=== PATIENT | female | born 1950 | race Caucasian/White ===

== ENCOUNTER → 2016-06-04 07:23 | Outpatient (CLI) | payer MEDICARE ==
[2015-02-01 07:10] VITALS: BMI 19.2
[~2016-06-04 07:23] MED LIST: ANASTROZOLE1 MG PO; ATIVAN0.5 MG PO; BUPROBAN150 MG PO; COUMADIN5 MG OR; DEPAKOTE500 MG PO; DESERYL100 MG PO; DIFLUCAN200 MG OR; EFFEXOR75 MG PO; FLAGYL500 MG OR; LASIX40 MG OR; LEXAPRO10 MG PO; MEGACE400 MG/10 OR; MICRO-K10 MEQ OR; NORCO 5/325 TAB1 TA1 OR; PRILOSEC20 MG PO; PROPRANOLOL HCL60 MG PO; PROTEIN LIQUID30 ML OR; RISPERDAL1 MG PO; RYTHMOL225 MG PO; ZOFRAN4 MG OR; ZYPREXA10 MG PO; ZYPREXA20 MG OR; ZYPREXA5 MG OR
== END | disposition home or self-care (01) ==
LOC: D.CT 07:23
DX: N95.0 Postmenopausal bleeding (principal)

== ENCOUNTER 2016-10-09 09:37 | Inpatient (IN) | payer MEDICARE ==
[~2016-10-09] VITALS: Ht 172.7 cm; Wt 47.3 kg
--- NOTE | ~2016-10-09 | EC ---
PATIENT:MAGGI GARAY DATE OF SERVICE: 10/10/16 SEX: F MEDICAL RECORD: [id number] DATE OF : [birth year] LOCATION:D.M2 D.212 AGE OF PATIENT: 66 ADMISSION DATE: 10/10/16 REFERRING PHYSICIAN: INTERPRETING PHYSICIAN: VALERIE CAPONE MD ECHOCARDIOGRAM REPORT ECHO CHARGES 4 ECHO COMPLETE CLINICAL DIAGNOSIS: ACS/COPD/WEAKNESS/ELEVATED TROPONIN ECHOCARDIOGRAPHIC MEASUREMENTS (adult normal given) AC root (d.<3.7cm) 3.6 LV Septum d (<1.2 cm> 1.5 Valve Excursion 2.1 LV Septum (systole) 1.8 Left Atria (s.<4.0cm> 3.2 LVPW d(<1.2cm) 1.5 RV (d.<2.3cm) 2.6 LVPW (sytole) 1.7 LV diastole(<5.6CM) 3.6 MV E-F(>70mm/sec) LV systole 2.3 LVOT Diameter 1.9 MV exc.(>10mm) 1.4 Est.ejection fraction (50-75%) Pericardial Effusion N DOPPLER: LVIT A 81.0 E 93.0 LA RVSP 22 LVOT 157 AOP1/2T Asc. Ao 174 RVOT 87 RA PA 121 AV Gradient Peak 12.13 AV Mean 6.42 AV Area 2.5 MV Gradient Peak 5.28 MV Mean 1.69 MV Area COMMENTS: Cube Machine Tender: Martha ALMODOVAR Trouble Clerk:Alma Mercedes TAPE# PACS DATE OF SERVICE: 10/11/2016 Adequate 2D echo, color flow, spectral Doppler, and M-mode. Mild LVH. LV internal dimension is normal. Wall motion is normal. EF is greater 55%. Aortic valve is tricuspid. No evidence of stenosis by Doppler interrogation. The left atrium is normal at 3.2 cm. Mitral valve shows no prolapse. Trace MR. Right-sided chamber is grossly normal. Mild TR by color flow imaging. TRANSINT:[id number] Voice Confirmation ID: [id number] DOCUMENT ID: [id number] ECHOCARDIOGRAM REPORT [id number] MAGGI GARAY VALERIE CAPONE MD CC: [id number] DICTATION DATE: 10/11/16 1026 ERP MANAGER: 10/11/16 1705 ADM IN [address] [place] [address]
[2016-10-09 11:15] LABS: APPEARANCE CLEAR (CLEAR); COLOR YELLOW (YELLOW)
[2016-10-09 11:17] LABS: BILIRUBIN NEGATIVE (NEGATIVE); GLUCOSE NEGATIVE (NEGATIVE); KETONE NEGATIVE (NEGATIVE); LEUKOCYTE ESTERASE NEGATIVE (NEGATIVE); NITRITE NEGATIVE (NEGATIVE); PROTEIN NEGATIVE (NEGATIVE); UROBILINOGEN NORMAL (NORMAL)
[2016-10-09 11:21] LABS: UDS - AMPHET NEGATIVE QUAL (NEGATIVE); UDS - BARB NEGATIVE QUAL (NEGATIVE); UDS - BENZO NEGATIVE QUAL (NEGATIVE); UDS - COCAINE NEGATIVE QUAL (NEGATIVE); UDS - METH NEGATIVE QUAL (NEGATIVE); UDS - OPIATE NEGATIVE QUAL (NEGATIVE); UDS - PCP NEGATIVE QUAL (NEGATIVE); UDS - THC NEGATIVE QUAL (NEGATIVE)
[2016-10-09 11:27] LABS: BASOPHILS 0.1 % (0-2); EOSINOPHILS 0.1 % (0-7); HEMATOCRIT 50.2 % (36.0-48.0); IMMATURE GRANULOCYTES 0.1 % (0-5); LYMPHOCYTES 13.2 % (15-50); MCH 32.9 pg (26.0-34.0); MCHC 33.9 g/dL (31.0-37.0); MCV 97.3 fL (80.0-100.0); MONOCYTES 11.8 % (2-11); NEUTROPHILS 74.7 % (40-80); PLATELET COUNT 200 10x3/uL (130-400); RBC 5.16 10x6/uL (4.00-5.40); RDW 14.7 % (11.5-14.5); WBC 6.9 10x3/uL (4.8-10.8)
[2016-10-09 11:41] LABS: ALBUMIN 3.2 g/dL (3.4-5.0); ALKALINE PHOSPHATASE 103 U/L (46-116); ALT (SGPT) 14 U/L (10-68); CALC OSMOLALITY 274 mosm/kg (275-300); CARBON DIOXIDE 32.6 mmol/L (21.0-32.0); CHLORIDE - SERUM 100 mmol/L (98-107); CREATININE - SERUM 0.7 mg/dL (0.6-1.3); GLUCOSE 109 mg/dL (74-106); POTASSIUM - SERUM 3.9 mmol/L (3.5-5.1); PROTEIN - SERUM 6.9 g/dL (6.4-8.2); SODIUM 139 mmol/L (136-145); UREA NITROGEN 2 mg/dL (7-18); eGFR NON AFRICAN AMERICAN 89 mL/min (90-120)
[2016-10-09 11:58] LABS: CREATINE KINASE 36 UL (21-215)
[2016-10-09 12:21] LABS: TROPONIN-I 0.142 ng/mL (0.000-0.060)
--- NOTE | 2016-10-09 15:46 | NUR ---
TRANSFERED FROM ER BY W/Mynor CURIEL TO ROOM. CALL LIGHT IN REACH. WILL CONT. PLAN OF CARE.
[2016-10-09] MEDS ORDERED: PEPCID20 MG PO (15:58)
[2016-10-09] MEDS ORDERED: TOPROL XL25 MG PO (15:58)
[2016-10-09] MEDS ORDERED: CARAFATE1 G PO (16:02)
[2016-10-09 16:12] VITALS: BP 121/81; BMI 15.5
[2016-10-09 19:00] VITALS: BP 173/68
[2016-10-10 04:00] VITALS: BP 79/48
[2016-10-10 05:45] LABS: BASOPHILS 0 % (0-2); EOSINOPHILS 0 % (0-7); HEMATOCRIT 45.4 % (36.0-48.0); IMMATURE GRANULOCYTES 0.3 % (0-5); LYMPHOCYTES 12.7 % (15-50); MCV 96.8 fL (80.0-100.0); MEAN PLATELET VOLUME 11.9 fL (7.4-10.4); MONOCYTES 4.7 % (2-11); NEUTROPHILS 82.3 % (40-80); PLATELET COUNT 196 10x3/uL (130-400); RBC 4.69 10x6/uL (4.00-5.40)
[2016-10-10 05:47] LABS: WBC 3.9 10x3/uL (4.8-10.8)
[2016-10-10 06:15] LABS: ALBUMIN 2.7 g/dL (3.4-5.0); ALKALINE PHOSPHATASE 89 U/L (46-116); ALT (SGPT) 10 U/L (10-68); BILIRUBIN - TOTAL 0.24 mg/dL (0.2-1.3); CALC OSMOLALITY 273 mosm/kg (275-300); CALCIUM 9.2 mg/dL (8.5-10.1); CARBON DIOXIDE 28.9 mmol/L (21.0-32.0); CHLORIDE - SERUM 99 mmol/L (98-107); CREATININE - SERUM 0.8 mg/dL (0.6-1.3); GLUCOSE 142 mg/dL (74-106); POTASSIUM - SERUM 3.9 mmol/L (3.5-5.1); PROTEIN - SERUM 6.2 g/dL (6.4-8.2); SODIUM 137 mmol/L (136-145); UREA NITROGEN 8 mg/dL (7-18); eGFR NON AFRICAN AMERICAN 76 mL/min (90-120)
[2016-10-10 08:37] VITALS: BP 90/53
[2016-10-10 11:33] VITALS: Ht 172.7 cm; Wt 47.3 kg
[2016-10-10 13:03] VITALS: BP 104/56
--- NOTE | 2016-10-10 13:25 | NUR ---
TELEMETRY SR. RESP UL ON 02 2L NC. UD CONT. PER RT. CALL LIGHT IN REACH. WILL MONITOR NEEDS.
[2016-10-10 16:03] VITALS: BP 96/58
[2016-10-10 20:00] VITALS: BP 93/57
--- NOTE | 2016-10-10 20:00 | NUR ---
PT RESTING IN BED. SR PER TELEMETRY. O2 @ 2L/NC. SALINE LOCK TO LFA. NPO AFTER MIDNIGHT FOR CTA OF CHEST IN AM
--- NOTE | 2016-10-10 23:00 | NUR ---
HS MEDS GIVEN. PT RESTING. VOICING NO NEEDS. IV ABT COMPLETED. CPOC.
[2016-10-11] VITALS: BP 80/51
[2016-10-11 04:00] VITALS: BP 100/61; BP 80/51
--- NOTE | 2016-10-11 04:20 | NUR ---
RESTING IN BED WITH NO DISTRESS. CPOC.
[2016-10-11 08:00] VITALS: BP 85/49
--- NOTE | 2016-10-11 08:35 | CN ---
PATIENT NAME:MAGGI GARAY MEDICAL RECORD: [id number] : [birth year] LOCATION:DJacinda D.2122 ADMIT DATE: 10/10/16 ACCOUNT: [id number] CONSULTING PHYSICIAN: VALERIE CAPONE MD REFERRING PHYSICIAN: SERENA VACA MD DATE OF CONSULTATION: 10/10/2016 HISTORY OF PRESENT ILLNESS: A 66-year-old lady with known history of coronary artery disease, status post arteriography via Dr. Youssef approximately 1 year ago, presented with COPD exacerbation, cough, wheezing, marked malaise, fatigue, is feeling much better now. Initially, elevated troponin, this is washing out quickly consistent with a strain pattern. ECG without acute change. We are asked to see her concerning her cardiovascular status. PAST MEDICAL HISTORY: Includes: 1. History of obstructive pulmonary disease. 2. Paroxysmal atrial fibrillation. 3. Hypertension. 4. Gastroesophageal reflux disease. ALLERGIES: NICOTINE PATCHES. MEDICATIONS: Typically include Prilosec 20 mg p.o. q. day, Carafate ____ a.c. and q.h.s., Risperdal 1 mg q.h.s., trazodone 100 q.h.s., Depakote ____ at bedtime, metoprolol 25 q. day, propafenone ____ b.i.d., and Arimidex 1 mg daily. SOCIAL HISTORY: Lives here in [place]. She is able to take care of her ADLs.. No set exercise program. Still smokes about a pack a day. REVIEW OF SYSTEMS: The patient reports easy bruising but reports no swollen glands. The patient reports no fever, no night sweats, no significant weight gain, no significant weight loss. No significant exercise tolerance. The patient reports no dry eyes, no irritation, no vision change. Patient reports no difficulty hearing and no ear pain. Patient reports no frequent nose bleeds or nose and sinus problems. Patient reports on arm pain on exertion. No shortness of breath while lying down. No history of heart murmur. Patient reports no cough, no wheezing or coughing up blood. Patient reports no abdominal pain, no vomiting. Normal appetite. No diarrhea and not vomiting blood. No nausea and no constipation. Patient reports no incontinence. No difficulty urinating. No hematuria. No increased frequency. Patient reports no muscle aches. No weakness, no arthralgias, no back pain. No swelling of the extremities. Patient reports no abnormal mole, no jaundice, no rashes. Reports no loss of consciousness. No weakness and no numbness. No seizures, dizziness, or headaches. The patient reports no depression, no sleep disturbance, feeling safe in a relationship and no alcohol abuse. Patient reports on fatigue. Reports no runny nose or sinus pressure. No itching, no hives, and no frequent sneezing.. PHYSICAL EXAMINATION: GENERAL: Pleasant female, alert and oriented, and cooperative. VITAL SIGNS: Blood pressure 90/53, pulse 94 and regular. HEENT: Normocephalic, atraumatic. NECK: No bruits are noted. HEART: Regular, II/ systolic ejection murmur. LUNGS: Actually fairly good air excursion, few expiratory wheezes. CONSULT REPORT [id number] GARAYMAGGI Angie ABDOMEN: Soft, nontender. EXTREMITIES: Pulses 2+ with no edema. NEUROLOGICAL: Grossly intact. DIAGNOSTIC DATA: ECG shows left anterior fascicular block, normal sinus rhythm. IMPRESSION: Enzymes most consistent with a strain pattern with early rods, quick washout, particularly in light of previous normal catheterization approximately a year ago. Remains in sinus rhythm at this point, improving from a pulmonary standpoint. No contraindication. Discharge in the a.m. if remains stable. TRANSINT:[id number] Voice Confirmation ID: [id number] DOCUMENT ID: [id number] VALERIE CAPONE MD at 0835 CC: [id number] DICTATION DATE: 10/10/16 1017 SANDER AND POLISHER: 10/10/16 1816 ADM IN [place] [id number] [place] [id number]
--- NOTE | 2016-10-11 12:21 | NUR ---
OUT OF ROOM FOR CT CHEST.
[2016-10-11 19:00] VITALS: BP 89/47
--- NOTE | 2016-10-11 19:56 | NUR ---
PT RESTING INBED WITH NO DISTRESS. IV ABT COMPLETED SO IVF SALINE LOCKED FROM IV IN LFA. O2 @ 2L/NC, MILD SHORTNESS OF BREATH AND CONGESTED COUGH. STATES SHE IS NOT COUGHING ANYTHING UP. ENCOURAGED HER TO DRINK WATER AND USE THE FLUTTER VALVE AND INCENTIVE SPIROMETER DIRECTED. PT WITH NO OTHER NEEDS AT THIS TIME. LARGE GLASS OF WATER PROVIDED. CALL LIGHT IN REACH.
--- NOTE | 2016-10-11 21:09 | NUR ---
BEDTIME MEDS PROVIDED. PT TEACHING ON SINGULAR, GUAFENESIN, AND TESSELON PERLE. PT VERY HUNGRY AND REQUESTING SNACK. PROVIDED WITH REQUESTED SHAHRAM CRACKERS X 2, SHERBERT X 1, PEANUT BUTTER X 2, ENSURE X 1 AND A FULL GLASS OF ICE WATER. NO OTHER NEEDS. CPOC.
[2016-10-12] VITALS: BP 103/55
[2016-10-12 04:00] VITALS: BP 154/67
[2016-10-12 05:31] LABS: BASOPHILS 0 % (0-2); EOSINOPHILS 0 % (0-7); HEMATOCRIT 41.7 % (36.0-48.0); HEMOGLOBIN 13.7 g/dL (12-16); IMMATURE GRANULOCYTES 0.3 % (0-5); MCH 31.9 pg (26.0-34.0); MCHC 32.9 g/dL (31.0-37.0); MCV 97.2 fL (80.0-100.0); MEAN PLATELET VOLUME 11.3 fL (7.4-10.4); MONOCYTES 9.1 % (2-11); NEUTROPHILS 79.6 % (40-80); RBC 4.29 10x6/uL (4.00-5.40); RDW 15.6 % (11.5-14.5)
[2016-10-12 05:52] LABS: PLATELET COUNT 255 10x3/uL (130-400); WBC 11.8 10x3/uL (4.8-10.8)
[2016-10-12 06:02] LABS: CALCIUM 8.8 mg/dL (8.5-10.1); CHLORIDE - SERUM 102 mmol/L (98-107); CREATININE - SERUM 0.6 mg/dL (0.6-1.3); GLUCOSE 96 mg/dL (74-106); POTASSIUM - SERUM 4.4 mmol/L (3.5-5.1); SODIUM 140 mmol/L (136-145); eGFR NON AFRICAN AMERICAN > 90 mL/min (90-120)
[2016-10-12 06:04] LABS: CALC OSMOLALITY 280 mosm/kg (275-300); CARBON DIOXIDE 37.7 mmol/L (21.0-32.0); UREA NITROGEN 18 mg/dL (7-18)
--- NOTE | 2016-10-12 07:42 | NUR ---
AWAKE WANTING COFFEE. NON PRODUCTIVE COUGH. MONIOTR SHOWS ELEVATED P SR @ 67.
[2016-10-12 08:22] VITALS: BP 106/56
--- NOTE | 2016-10-12 11:15 | NUR ---
HAS BEEN UP WALKING WITH Maribel AYALA WELL. TOOK A SHOWER AND FEELS BETTER AFTERWARDS. TRYING TO COLLECT SPUTUM SPECIMEN. AM MEDS GIVEN.
[2016-10-12 11:43] VITALS: BP 100/55
--- NOTE | 2016-10-12 16:49 | NUR ---
Patient Name: MAGGI GARAY Admission Status: ER Accout number: [id number] Admission Date: 10-10-2016 : 1950 Admission Diagnosis: Attending: CLARITZA Current LOS: 2 Anticipated DC Date: 10-13-2016 Planned Disposition: Home Primary Insurance: MEDICARE A & B Discharge Planning Comments: CM MET WITH PATIENT TO DISCUSS DISCHARGE PLANNING/NEEDS. PATIENT STATED SHE PLANS TO RETURN HOME WITH HER SON ANA PEOPLES ([phone]) AND THAT HER BROTHER REJI BAEZ ([phone]) WILL BE HER TRANSPORTATION HOME. SHE STATED THAT DR VACA SAID SHE WAS GOING TO NEED A NEBULIZER WHEN SHE GOES HOME TO CONTINUE BREATHING TREATMENTS. AT THIS TIME THERE IS NO MENTION OF IT IN HIS NOTES OR AN ORDER, BUT WILL FOLLOW. SHE DENIES ANY NEEDS AT THIS TIME, BUT STATED IF DR VACA WANTED HER TO HAVE HOME HEALTH, SHE WOULD LIKE TO USE [facility] BECAUSE SHE HAS USED THEM IN THE PAST AND LIKES THEM. CM WILL CONTINUE TO FOLLOW. Necktie Turner: Reina Temple Is the patient Alert and Oriented? Yes * How many steps to enter\exit or inside your home? 6 * PCP DR VACA * Pharmacy [facility] IN [place] * Preadmission Environment Home with Family * ADLs Independent * Equipment None * List name and contact numbers for known caregivers / representatives who currently or will assist patient after discharge: JANINE DUMONT, DAUGHTER, ANA PEOPLES, SON, REJI CRISTINA, BROTHER, * Community resources currently utilized None * Please name any agencies selected above. HAS USED [facility] IN THE PAST, AND IF DR VACA ORDERS HOME HEALTH AGAIN, SHE SAID SHE WOULD LIKE TO USE THEM. * Additional services required to return to the preadmission environment? No * Can the patient safely return to the preadmission environment? Yes * Has this patient been hospitalized within the prior 30 days at any hospital? No
--- NOTE | 2016-10-12 16:53 | NUR ---
UP IN HALLWAY WITH DAUGHTER. NO DISTRESS.
[2016-10-12 20:00] VITALS: BP 92/52
--- NOTE | 2016-10-12 20:13 | NUR ---
PT RESTING IN BED SIDE CHAIR. HAS JUST VISITED WITH DAUGHTER. LOOKING RELAXED. STATES SHE HAS BEEN UP WALKING TODAY. O2 @ 2L/NC WITH SHALLOW/NONLABORED RESPIRATIONS. ASSESSMENT COMPLETED. CPOC. CALL LIGHT IN REACH.
--- NOTE | 2016-10-12 21:55 | NUR ---
PT RESTING WITH EYES CLOSESD. ROUSES UP EASILY TO NAME. BEDTIME MEDS GIVEN. IV SOLUMEDROL ADMINISTERED. LFA PIV SALINE LOCKED. NO NEEDS. CALL LIGHT IN REACH.
[2016-10-13] VITALS: BP 104/53
--- NOTE | 2016-10-13 06:15 | NUR ---
PT RESTING WITH NO DISTRESS. AM MED GIVEN. CPOC. CALL LIGHT IN REACH.
[2016-10-13] MEDS ORDERED: BROVANA15 MCG/2 M INH (07:14)
[2016-10-13] MEDS ORDERED: IPRAT-ALBUT 0.5-3 ML INH (07:14)
[2016-10-13] MEDS ORDERED: NICODERM C1 PATCH .1 TRANSDERM (07:15)
[2016-10-13] MEDS ORDERED: CEFUROXIME250 MG PO (07:16)
[2016-10-13] MEDS ORDERED: MUCINEX DM ER1 EAC1 PO (07:16)
--- NOTE | 2016-10-13 07:21 | NUR ---
AM ROUNDS- PT IN BED, RECEIVING BREATHING TREATMENT AT THIS TIME. HOUSE KEEPING AT BEDSIDE CLEANING ROOM. LT FA IV SL. PT DENIES ANY NEEDS AT THIS TIME. CALL LIGHT IN REACH, NAD NOTED, WILL CONTINUE TO MONITOR.
[2016-10-13 07:27] LABS: IMMUNOGLOBULIN E 6 IU/mL (0-100)
--- NOTE | 2016-10-13 09:00 | NUR ---
ADMINISTERED MORNING MEDS. PT IN BED, WATCHING TV, DENIES ANY NEEDS AT THIS TIME. CALL LIGHT IN REACH, NAD NOTED, WILL CONTINUE TO MONITOR.
[2016-10-13 09:06] VITALS: BP 114/61
[2016-10-13 09:17] LABS: IMMUNOGLOBULIN A 109 mg/dL (87-352); IMMUNOGLOBULIN G 712 mg/dL (700-1600)
--- NOTE | 2016-10-13 09:19 | NUR ---
PATIENT WITH ORDER TO DISCHARGE HOME. WITH HOME HEALTH AND OVER NIGHT O2 STUDY. PATIENT WILL ALSO NEED A NEBULIZER FOR HER NEWLY ORDERED BREATHING TREATMENT. SPOKE WITH PATIENT, PER HER REQUEST [facility] WAS CONTACTED FOR HER HOME HEALTH NEEDS. PATIENT REQUESTED THAT 2 DME COMPANIES IN [place] BE CONTACTED FIRST AND IF THEY WERE NOT AVAILABLE, SHE CHOSE [employer] AND THEN [email or web address] POSSIBLE DME COMPANIES. CALL WAS FIRST PLACED TO [facility]. WAS ONLY ABLE TO REACH THEIR EMERGENCY CALL LINE. THEN CALLED [facility] AND [employer], UNABLE TO REACH ANYONE. THIRD CONTACT WAS TO [facility] AND THEY ACCEPTED PATIENT. INFORMATION SENT. PER LAURA'S REQUEST AT [facility], WILL HAVE THE NURSE ASK THE SON TO STOP BY AND SAMPLER AND TEST PREPARER HER NEBULIZER.
--- NOTE | 2016-10-13 09:22 | NUR ---
PROVIDED VERBAL AND WRITTEN DISCHARGE INSTRUCTIONS TO PT, PT VERBALIZED UNDERSTANDING REGARDING INSTRUCTIONS. D/C LEFT FA IV, TIP INTACT. PT WAITING FOR RIDE, NAD NOTED, CALL LIGHT IN REACH, WILL CONTINUE TO MONITOR.
--- NOTE | 2016-10-13 09:49 | NUR ---
PT LEFT UNIT VIA WHEELCHAIR, ACCOMPANIED BY SON, NAD NOTED.
--- NOTE | 2016-10-15 08:09 | DS ---
PATIENT:MAGGI GARAY :[birth year] MEDICAL RECORD: [id number] DISCHARGE SUMMARY ADMISSION DATE: 10/10/16 DISCHARGE DATE: 10/13/16 DISCHARGE DIAGNOSES: Chronic obstructive pulmonary disease exacerbation, ybovy-jv-anblbry hypoxemia with hypercapnic respiratory failure, left upper and left lower lobe atelectasis, alpha 1 antitrypsin deficiency, allergic rhinitis, gastroesophageal reflux disease, history of supraventricular tachycardia, tobacco abuse, hypertension, bipolar disorder and schizophrenia disorder. HOSPITAL COURSE: A 66-year-old female, current smoker, who had increasing shortness of breath for several days prior to admission, she was told her son she could not breath and came to the ED. She was admitted by Dr. Castro in my absence with a pO2 of 60, pCO2 of 53 and pH of 7.383 on room air. The patient was seen by pulmonary as well. Chest x-ray showed atelectasis left upper and lower lobe. CT of the chest showed chronic atelectasis, improved from previous. The patient responded well to therapy. Her H&H was 17 and 50 on admission, 13.7 and 41 at discharge. White count is 11.8 thousand due to steroid use. She is doing well now. Her follow up chest x-ray is unremarkable. O2 sats 94% on room air. She is essentially wheeze free now. She will be discharged today in improved condition to have followup in our office in 1 week. I have talked to her daughter, who is an ICU nurse and she states that she thinks she can help her and her brother can help be compliant with updrafts and her medications. At this time, she will be discharged on Nicoderm patch and hopefully she will not smoke. DISCHARGE MEDICATIONS: Nicoderm 14 mg patch to skin q.24 hours, Brovana updrafts 15 mcg b.i.d., DuoNeb updrafts q.4 hours, Ceftin 250 mg b.i.d. for 7 days. Discontinue Mucinex ER 600 mg b.i.d., Depakote 500 mg 2 tabs or 1000 mg p.o. at h.s., omeprazole 20 mg daily, Arimidex 1 mg daily, Rythmol 225 mg b.i.d., Desyrel 100 mg at h.s., Risperdal 1 mg p.o. at h.s., Pepcid 20 mg p.o. at h.s., Toprol XL 25 mg daily, Carafate 1 gram p.o. a.c. and h.s. DIET: Regular as tolerated. ACTIVITY: Progress as tolerated, home health consult for medication compliance. RTC in 1 week. TRANSINT:[id number] Voice Confirmation ID: [id number] DOCUMENT ID: [id number] SERENA VACA MD at 0809 CC: [id number] DICTATION DATE: 10/13/16 0724 APPLIER: 10/14/16 0200 DIS IN 10/13/16 [place] [id number] [place] [id number]
== END 2016-10-13 09:50 | disposition home health service (06) | DRG 189 ==
LOC: D.ER 09:37 → D.M2 14:16 → OBSVTIME 14:16 → D.M2 14:16
PROVIDERS: Emergency Medicine; Family Medicine; Internal Medicine Pulmonary Disease; ADMIT Family Medicine
DX: J96.22 Acute and chronic respiratory failure with hypercapnia (principal); J18.9 Pneumonia, unspecified organism; J44.0 Chronic obstructive pulmonary disease with (acute) lower respiratory infection; J44.1 Chronic obstructive pulmonary disease with (acute) exacerbation; J96.21 Acute and chronic respiratory failure with hypoxia; I07.1 Rheumatic tricuspid insufficiency; I48.0 Paroxysmal atrial fibrillation; I10 Essential (primary) hypertension; K21.9 Gastro-esophageal reflux disease without esophagitis; F31.9 Bipolar disorder, unspecified; F20.9 Schizophrenia, unspecified; J30.9 Allergic rhinitis, unspecified; Z72.0 Tobacco use

== ENCOUNTER 2016-12-07 14:48 | Emergency (ER) | payer MEDICARE ==
[2016-10-10 11:33] VITALS: BMI 15.3
[~2016-12-07 14:48] MED LIST changes: +BROVANA15 MCG/2 M INH; +CARAFATE1 G PO; +CEFUROXIME250 MG PO; +IPRAT-ALBUT 0.5-3 ML INH; +MUCINEX DM ER1 EAC1 PO; +NICODERM C1 PATCH .1 TRANSDERM; +PEPCID20 MG PO; +TOPROL XL25 MG PO
[2016-12-07 15:34] LABS: BASOPHILS 0.9 % (0-2); EOSINOPHILS 2.3 % (0-7); HEMATOCRIT 41.9 % (36.0-48.0); HEMOGLOBIN 14.2 g/dL (12-16); IMMATURE GRANULOCYTES 0.2 % (0-5); LYMPHOCYTES 36.1 % (15-50); MCH 32.9 pg (26.0-34.0); MCHC 33.9 g/dL (31.0-37.0); MCV 97.2 fL (80.0-100.0); MEAN PLATELET VOLUME 10.9 fL (7.4-10.4); MONOCYTES 14.6 % (2-11); NEUTROPHILS 45.9 % (40-80); PLATELET COUNT 244 10x3/uL (130-400); RBC 4.31 10x6/uL (4.00-5.40); RDW 14.4 % (11.5-14.5); WBC 5.7 10x3/uL (4.8-10.8)
[2016-12-07 15:44] LABS: APPEARANCE SLT CLOUDY (CLEAR); BILIRUBIN NEGATIVE (NEGATIVE); COLOR YELLOW (YELLOW); GLUCOSE NEGATIVE (NEGATIVE); KETONE NEGATIVE (NEGATIVE); LEUKOCYTE ESTERASE 2+ (NEGATIVE); NITRITE NEGATIVE (NEGATIVE); PROTEIN NEGATIVE (NEGATIVE); UROBILINOGEN NORMAL (NORMAL)
[2016-12-07 15:47] LABS: BACTERIA FEW /hpf (NONE SEEN)
[2016-12-07 15:50] LABS: UDS - AMPHET NEGATIVE QUAL (NEGATIVE); UDS - BARB NEGATIVE QUAL (NEGATIVE); UDS - BENZO NEGATIVE QUAL (NEGATIVE); UDS - COCAINE NEGATIVE QUAL (NEGATIVE); UDS - METH NEGATIVE QUAL (NEGATIVE); UDS - OPIATE NEGATIVE QUAL (NEGATIVE); UDS - PCP NEGATIVE QUAL (NEGATIVE); UDS - THC NEGATIVE QUAL (NEGATIVE)
[2016-12-07 16:09] LABS: ALBUMIN 3.4 g/dL (3.4-5.0); ALKALINE PHOSPHATASE 78 U/L (46-116); ALT (SGPT) 13 U/L (10-68); BILIRUBIN - TOTAL 0.33 mg/dL (0.2-1.3); CALC OSMOLALITY 269 mosm/kg (275-300); CALCIUM 9.1 mg/dL (8.5-10.1); CARBON DIOXIDE 32.9 mmol/L (21.0-32.0); CHLORIDE - SERUM 100 mmol/L (98-107); CREATININE - SERUM 0.7 mg/dL (0.6-1.3); GLUCOSE 96 mg/dL (74-106); POTASSIUM - SERUM 4.4 mmol/L (3.5-5.1); PROTEIN - SERUM 6.7 g/dL (6.4-8.2); SODIUM 136 mmol/L (136-145); UREA NITROGEN 8 mg/dL (7-18); VALPROIC ACID (DEPAKOTE) 41.8 ug/mL (50.0-100.0); eGFR NON AFRICAN AMERICAN 89 mL/min (90-120)
== END 2016-12-07 18:05 ==
LOC: D.ER 14:48
PROVIDERS: Family Medicine
DX: F23 Brief psychotic disorder (principal); I10 Essential (primary) hypertension; J44.9 Chronic obstructive pulmonary disease, unspecified; R44.0 Auditory hallucinations

== ENCOUNTER 2016-12-07 18:05 | Inpatient (IN) | payer MEDICARE ==
[~2016-12-07] VITALS: Ht 172.7 cm; Wt 48.4 kg
--- NOTE | 2016-12-07 22:54 | NUR ---
RECEIVED IN HALLWAY. STANDING OUTSIDE OF NURSES STATION. SOCIALIZING WITH STAFF AT TIMES. CALM AND COOPERATIVE WITH CARE AND ASSESSMENTS. NO SIGNS OF HALLUCINATIONS. ENCOURAGE TO EXPRESS NEEDS. CONTINUE PLAN OF CARE
[2016-12-08 05:48] VITALS: BP 121/65
[2016-12-08 06:34] LABS: HEMOGLOBIN A1C 5.8 % (4.8-6.0)
[2016-12-08 06:50] LABS: CHOL - HDL RATIO 2.3 ratio (2.3-4.1); LDL-HDL RATIO 1.1 ratio (1.5-3.5); THYROID STIMULATING HORMONE 0.88 uIU/mL (0.36-3.74)
[2016-12-08 09:04] VITALS: BP 117/72
--- NOTE | 2016-12-08 10:00 | NUR ---
ALERT AND ORIENTED TO NAME, TIME AND PLACE. CALM AND COOPERATIVE WITH ASSESSMENT. DENIES ANY HALLUCINATIONS. ADMINISTER PRESCRIBED MEDICATIONS. REDIRECT AND REORIENT NEEDED. AMBULATES INDEPENDTLY. MONITOR FOR FALLS AND SAFETY. CONTINUE PLAN OF CARE.
[2016-12-08 19:34] VITALS: BP 126/79
[2016-12-08 19:42] VITALS: BP 126/79
--- NOTE | 2016-12-08 21:55 | NUR ---
RECEIVED AT NURSES STATION. ALERT AND ORIENTED. CALM AND COOPERATIVE WITH CARE AND ASSESSMENTS. NO SIGNS OF HALLUCINATIONS. ENCOURAGE TO EXPRESS NEEDS. RESTING IN BED EYES CLOSED AT THIS TIME. CONTINUE PLAN OF CARE
[2016-12-09 07:27] LABS: RAPID PLASMA REAGIN Non Reactive (Non Reactive); VITAMIN D 25 HYDROXY 23.6 ng/mL (30.0-100.0)
[2016-12-09 07:32] VITALS: BP 148/74
[2016-12-09 08:18] LABS: FOLATE (FOLIC ACID) - SERUM 14.6 ng/mL (>3.0)
--- NOTE | 2016-12-09 10:31 | PSY ---
PATIENT NAME:MAGGI GARAY MEDICAL RECORD: [id number] : [birth year] LOCATION:[facility] [place] ADMISSION DATE: 12/07/16 ACCOUNT: [id number] PSYCHIATRIC EVALUATION DATE OF EVALUATION: 12/08/16 Initial Psychiatric Workup IDENTIFYING DATA: A 66-year-old unmarried white female, admitted for her first [facility] stay. HISTORY OF PRESENT ILLNESS: This patient has a documented past history of schizoaffective disorder. Symptoms have been present most of her adult life. She has been hospitalized in the past because of psychosis. The events leading up to the hospitalization included the fact that the patient, who lives at home with son, had stopped taking her medication and had begun to exhibit bizarre behavior. She had been wandering outside naked. She was experiencing hallucinations commanding her to hurt other people. She was under the delusion that she was being poisoned by a pharmacy. She had begun to show self neglect. The patient is followed by doctor associated with [facility] here in [facility]. She has had several episodes in the past of noncompliance with medication and as a result, the patient becomes acutely psychotic. The patient's daughter works at [employer] in the intensive care unit and provides good support and the son with whom the patient lives reportedly is unemployed. Because of worsening psychosis and possible endangerment to self and others, the patient is admitted. PAST MEDICAL HISTORY: Significant for chronic obstructive pulmonary disease, hypertension, gastroesophageal reflux disease, cardiac arrhythmias and a past history of breast cancer. FAMILY HISTORY: The patient has a son who has a substance abuse problem. SOCIAL HISTORY: The patient has 2 children, a son and a daughter, she is a smoker. There is no history of substance abuse. No history of legal entanglements. CURRENT MEDICATIONS AT TIME OF ADMISSION: Included Risperdal 1 mg h.s., metoprolol 25 mg daily, Arimidex 1 mg daily, Rythmol 225 mg twice a day, Depakote 500 mg at bedtime and Pepcid 20 mg b.i.d. ALLERGIES: None listed. MENTAL STATUS: On exam, is a very thin white female of average height. She is casually dressed and groomed. Eye contact is at times, staring and fixed. Facial expression tends to be blank. Speech is monotonous and quality and exhibits a poverty of content. Motor activity is somewhat restless. Content of thought is strongly positive for psychotic symptoms as described above. The patient is oriented to time, place and person. Concentration is rather poor. DIAGNOSTIC IMPRESSION: AXIS I: Schizoaffective disorder by history -- depressed phase. AXIS II: No diagnosis. AXIS III: Chronic obstructive pulmonary disease, hypertension, gastroesophageal reflux disease, history of breast cancer and cardiac arrhythmias. AXIS IV: Severe. AXIS V: 35. PLAN: 1. The patient is admitted for medication revision -- we will likely substitute Zyprexa Zydis for the Risperdal. 2. We will check valproic acid level in the morning. 3. Continue other current medications. 4. Daily supportive therapy. TRANSINT:[id number] Voice Confirmation ID: [id number] DOCUMENT ID: [id number] ARIE RODRIGUES III, MD at 1031 CC: [id number] DICTATION DATE: 12/08/16 1130 ANNUAL GIVING MANAGER: 12/08/16 1233 [facility] IN [place] [id number] [place] [id number]
--- NOTE | 2016-12-09 15:40 | NUR ---
ASSESSMEMT COMPLETED PER FLOW SHEET. SITTING IN DINING ROOM ALONE, ISOLATED FROM PEERS AND STAFF. MOST OF DAY, HAS HAD A BLANK NON-EXPRESSIVE STARE. DENIES ANY NEEDS OR COMPLAINTS. AROUND 1620, SHE STARTED TALKING, CRYING AND LAUGHING WITH VOICES WHILE SITTING AT TABLE. COMPLIANT WITH TAKIN PO MEDICATIONS. MONITOR FOR SAFTY. CONTINUE PLAN OF CARE.
[2016-12-09 19:51] VITALS: BP 131/97
--- NOTE | 2016-12-10 00:53 | NUR ---
B) Patient alert and oriented, restless at times, cooperative with care and assessment, keeps to herself, I) Administered perscribed medications, monitored for safety, R) Medication complaint, resting quietly now, P) Continue plan of care.
[2016-12-10 07:48] VITALS: BP 158/87
--- NOTE | 2016-12-10 10:00 | NUR ---
ASSESSMENT COMPLETED. CALM AND COOPERATIVE WITH ASSESSMENT. DENIES ANY NEEDS. ISOLATES HERSELF FROM PEERS. WILL CONTINUE TO MONITOR.
--- NOTE | 2016-12-10 10:00 | NUR ---
ASSESSMENT COMPLETED PER FLOW SHEET. CALM AND COOPERATIVE WITH ASSESSMENT. SHE ISOLATES HERSELF FROM PEERS. SHE DID PARTICIPATE WITH GROUP BY SINGING AND DANCING WITH MISTY.
--- NOTE | 2016-12-10 10:46 | NUR ---
SW MET WITH PT TO DISCUSS CARE AND TREATMENT ON THE UNIT. PT STATED SHE IS HEARING VOICES AND WILL HURT OTHER PT'S IF THEY LAUGH AT HER. PT WAS LABILE DURING DISCUSSION. PT STATED SHE QUIT TAKING HER MEDICATIONS BECAUSE SHE THOUGHT SHE WAS BEING POISONED. PT STARTED SCREAMING AT THE VOICES AND TELLING THEM SHE IS TIRED OF ALL THE RUMORS THEY ARE SPREADING. PT BECAME ANGRY AND STATED PT'S WERE TALKING ABOUT HER AND THAT IS WHY SHE STAYS AWAY FROM PEOPLE. PT REPORTED ALL THE VOICES IN HER HEAD WERE TELLING HER TO DO THINGS THAT SHE COULDN'T SAY BECAUSE SHE DIDN'T WANT TO BE VULNERABLE. SW ENCOURAGED PT TO CONTINUE MEDICATION REGIMEN AND PARTICIPATE WHEN SHE FEELS COMFORTABLE.
--- NOTE | 2016-12-10 11:26 | PN ---
PATIENT:MAGGI GARAY MEDICAL RECORD: [id number] LOCATION:[facility] [place] ADMISSION DATE: 12/07/16 PROGRESS NOTE DATE OF SERVICE: 12/09/2016 SUBJECTIVE: The patient states that she is invisible and that is why she walks around without any clothes on from time to time. OBJECTIVE: On exam, the patient's mood is euthymic, affect is very constricted. Speech is somewhat terse. Content of thought is positive for delusional ideation. Sensorium shows no change. ASSESSMENT: No change in diagnosis. PLAN: 1. Continue current medication. 2. Continue supportive therapy. TRANSINT:[id number] Voice Confirmation ID: [id number] DOCUMENT ID: [id number] ARIE RODRIGUES III, MD at 1126 CC: [id number] DICTATION DATE: 12/09/16 1043 PHP PROGRAMMER: 12/09/16 1842 ADM IN [place] [id number] [place] [address]
[2016-12-10 20:10] VITALS: BP 129/69
--- NOTE | 2016-12-11 03:23 | NUR ---
B) Alert and oriented calm and cooperative in the day room, restless at times. I) Administered perscribed medications, monitored for safety and for behaviors, R) Medications compliant, auditory hallucinations whe in her room at HS, yelling out at the hallucinations at times, P) Continue plan of care.
--- NOTE | 2016-12-11 06:13 | PN ---
PATIENT:MAGGI GARAY MEDICAL RECORD: [id number] LOCATION:[facility] [place] ADMISSION DATE: 12/07/16 PROGRESS NOTE DATE OF SERVICE: 12/10/2016 SUBJECTIVE: The patient does not offer a new complaint. OBJECTIVE: The patient is showing extreme lability of affect. Staff has noted that she frequently responds to internal stimuli. She can be observed, arguing with her hallucinations from time to time. She occasionally makes threatening statements toward other people on the unit, but has not shown overt violence. On exam, the patient's mood is suspicious. Affect is very guarded and reserved. Speech is terse. Content of thought as noted above. Sensorium is unchanged. ASSESSMENT: No change in diagnosis. PLAN: 1. Increase Zyprexa Zydis to 5 mg twice a day. 2. Continue other current medications. 3. Continue supportive therapy. TRANSINT:[id number] Voice Confirmation ID: [id number] DOCUMENT ID: [id number] ARIE RODRIGUES III, MD at 0613 CC: [id number] DICTATION DATE: 12/10/16 1212 MOTOR REBUILDER: 12/10/16 1800 ADM IN [place] [id number] [place] [address]
[2016-12-11 07:54] VITALS: BP 124/73
--- NOTE | 2016-12-11 16:26 | NUR ---
pt continues to have command hallucinations that tell her to hurt other people. she reported this to dr. lucas. pt has been yelling and cursing at unseen others. pt paces the halls. pt does not participate in groups but does at times sit in on them. social with staff and peers when spoken to. pt laughs inappropriately. medications given as orderd. fall precautions maintained. will continue to monitor and continue with plan of care.
--- NOTE | 2016-12-11 17:32 | NUR ---
PT IS THREATENING HARM TO UNSEEN OTHERS. SHE CALLS THEM OUT BY DIFFERENT NAMES. SHE HAS NOW STARTED CURSING AT STAFF AND ARGUEING WITH THE VOICES TO WHAT TO DO TO THE STAFF. 1:1 FOR SAFETY.
[2016-12-11 19:30] VITALS: BP 162/101
--- NOTE | 2016-12-12 00:59 | NUR ---
B) Alert nd orient, withdrawn and sitting by herself in the dining room, talking quietly to the voices in her head, restless at times and anxious, I) Administered scheduled medicatiosn, PRN Ativan 0.5 mg PO given at 20:25 for anxiety, R) Medication compliant, resting quietly in her room, P) Continue plan of care.
[2016-12-12 07:47] VITALS: BP 110/68
--- NOTE | 2016-12-12 16:09 | NUR ---
AWAKE ALERT AND ORIENTED X 3. ASSESSMENT COMPLETED. SITS QUIETLY BY HER SELF IN DAYROOM TALKING SOFTLY WITH THE VOICES IN HER HEAD. HAS NOT BEEN INAPPROPRIATE WITH STAFF OR PEERS. PACES AT TIMES. COMPLIANT WITH PRESCRIBED MEDICATIONS. MONITOR FOR SAFETY. CONTINUE PLAN OF CARE.
[2016-12-12 19:30] VITALS: BP 137/66
--- NOTE | 2016-12-13 03:11 | NUR ---
B) Patient alert and oriented, self isolated in the dinning area, talking quietly to herself, cooperative with staff, I) Administered scheduled medications, R) Medication compliant, withdrawn P) Continue plan of care.
--- NOTE | 2016-12-13 05:30 | PN ---
PATIENT:MAGGI GARAY MEDICAL RECORD: [id number] LOCATION:[facility] ADMISSION DATE: 12/07/16 PROGRESS NOTE DATE OF SERVICE: 12/11/2016 SUBJECTIVE: No new complaint. OBJECTIVE: The patient continues to show florid psychotic symptoms. She is noted to be attending to internal stimuli even during the course of today's interview. Mood is slightly anxious. Affect is very distant and peculiar. Speech is terse. Content of thought is strongly positive for delusional ideation and auditory hallucinations. Sensorium is unchanged. ASSESSMENT: No change in diagnosis. PLAN: 1. Advance Zyprexa Zydis to 10 mg b.i.d. 2. Continue other current medications. 3. Continue supportive therapy. TRANSINT:[id number] Voice Confirmation ID: [id number] DOCUMENT ID: [id number] ARIE RODRIGUES III, MD at 0530 CC: [id number] DICTATION DATE: 12/11/16 1235 CIGARETTE FILTER INSPECTOR: 12/11/16 2018 ADM IN [place] [id number] [place] [id number]
[2016-12-13 08:07] VITALS: BP 130/67
--- NOTE | 2016-12-13 18:24 | NUR ---
CONFUSED AND DISORIENTED.AGGITATED THIS AM,ATIVAN 0.5MG GIVEN WITH GOOD RESPONSE.AMBULATORY PER SELF.THINKS ANOTHER PATIENT IS HER MOTHER,EXPLAINED TO HER IT'S NOT HER MOTHER.IS COMPLIANT WITH STAFF AND MEDS.WILL CONTINUE WITH PLAN OF CARE ,MONITOR FOR CHANGES AND SAFETY.
[2016-12-13 20:01] VITALS: BP 116/66
--- NOTE | 2016-12-13 21:34 | NUR ---
RECEIVED IN DAYROOM. SITTING BY HERSELF. CALM AND COOPERATIUVE WITH CARE AND ASSESSMENT. HAVING AUDITORY HALLUCINATIONS. TALKING TO UNSEEN PERSONS. ENCOURAGE TO EXPRESS NEEDS. CONTINUES TO ISOLATE HERSLEF FROM PEERS. CONTINUE PLAN OF CARE
[2016-12-14 07:00] VITALS: BP 127/86
[2016-12-14 19:45] VITALS: BP 132/75
--- NOTE | 2016-12-15 02:14 | NUR ---
RECEIVED IN BEDROOM. SITTING ON EDGE OF BED. CALM AND COOPERATIVE WITH CARE AND ASSESSMENTS. NO SIGNS OF HALLUCINATIONS. ENCOURAGE TO EXPRESS NEEDS. RESTING IN BED EYES CLOSED AT THIS TIME. CONTINUE PLAN OF CARE
[2016-12-15 07:57] VITALS: BP 140/79
--- NOTE | 2016-12-15 10:43 | NUR ---
PT IS A&O THIS AM. PT AM MEDS ADMINISTERED. PT COMPLIANT WITH MEDICATIONS. PT WATCHING TV IN DAY ROOM AT THIS TIME. [facility].
[2016-12-15 19:26] VITALS: BP 128/54
--- NOTE | 2016-12-15 22:31 | NUR ---
RECEIVED IN BEDROOM. SITTING ON EDGE OF BED. CALM AND COOPERATIVE WITH CARE AND ASSESSMENTS. NO SIGNS OF HALLUCIANTIONS. ENCOURAGE TO EXPRESS NEEDS. RESTING EYES CLOSED AT THIS TIME. CONTINUE PLAN OF CARE
[2016-12-16 08:40] VITALS: BP 131/77
--- NOTE | 2016-12-16 12:35 | PN ---
PATIENT:MAGGI GARAY MEDICAL RECORD: [id number] LOCATION:[facility] ADMISSION DATE: 12/07/16 PROGRESS NOTE DATE OF SERVICE: 12/15/2016 SUBJECTIVE: The patient's case was discussed with staff. She has no new complaint. OBJECTIVE: The patient is in good behavioral control with limited insight about her condition. She is tolerating her medicines well. ASSESSMENT: No change in diagnoses. PLAN: Brief supportive and educational interventions were made. The patient's long-term prognosis is guarded. TRANSINT:[id number] Voice Confirmation ID: [id number] DOCUMENT ID: [id number] SABRINA JOSEPH MD at 1235 CC: [id number] DICTATION DATE: 12/15/16 1425 HEAD SHIPPER: 12/15/16 1549 ADM IN [place] [id number] [place] [address]
--- NOTE | 2016-12-16 14:21 | NUR ---
Nutrition Follow Up: Chart reviewed. Pt is eating 100% meal avg on a regular diet. +BM 12/15/16. No new labs to assess. Meds reviewed. Rec continue current diet. RD following.
--- NOTE | 2016-12-16 17:34 | NUR ---
B) Pt alert, calm at most times. However, pt did experience occasionaly episodes of tearfulness and stated, "I just get depressed at times." I) Meds admin as ordered, group therapy provided. R) Kalyan meds well. Participated in group activity. No hallucinations reported. P) Cont plan of care including meds and group therapy until discharge.
[2016-12-16 19:30] VITALS: BP 138/99
--- NOTE | 2016-12-17 00:55 | NUR ---
B) Patient alert and oreinted , calm and cooperative this shift, withdrawn and keeping to herself, staying in dinning room away from other patients, I) Administere medications, monitored for behaviors, R) Medication compliant, no hallucinations noted this shift, P) Continue plan of care.
[2016-12-17 08:52] VITALS: BP 142/70
--- NOTE | 2016-12-17 10:26 | PN ---
PATIENT:MAGGI GARAY MEDICAL RECORD: [id number] LOCATION:[facility] ADMISSION DATE: 12/07/16 PROGRESS NOTE DATE OF SERVICE: 12/14/2016 SUBJECTIVE: No new complaint. OBJECTIVE: The patient continues to speak back to auditory hallucinations. She continues to show extreme lability of affect. She remains withdrawn at times, at other times she is quite intrusive. On exam, mood is rather irritable. Affect is sullen and constricted. Speech is terse. Content of thought is still positive for auditory hallucinations and delusional ideation. Sensorium is unchanged. ASSESSMENT: No change in diagnosis. PLAN: 1. Advance Zyprexa Zydis to 15 mg twice a day. 2. Continue other current medications. 3. Continue supportive therapy. TRANSINT:[id number] Voice Confirmation ID: [id number] DOCUMENT ID: [id number] ARIE RODRIGUES III, MD at 1026 CC: [id number] DICTATION DATE: 12/14/16 0949 SWITCH TECHNICIAN: 12/14/16 1420 ADM IN [place] [id number] [place] [address]
--- NOTE | 2016-12-17 10:26 | PN ---
PATIENT:MAGGI GARAY MEDICAL RECORD: [id number] LOCATION:[facility] ADMISSION DATE: 12/07/16 PROGRESS NOTE DATE OF SERVICE: 12/16/2016 SUBJECTIVE: No new complaint. OBJECTIVE: The patient continues to exhibit delusional ideation. She does not appear to be attending to hallucinations to the degree that she was in previously, but continues to obviously have to internal stimuli. Valproic acid level from this morning is 42.9. On exam, mood is rather irritable. Affect is somewhat sullen. Speech is terse. Content of thought as noted above. Sensorium unchanged. ASSESSMENT: No change in diagnosis. PLAN: 1. Change Zyprexa to 20 mg b.i.d. 2. Continue other medications. 3. Continue supportive therapy. TRANSINT:[id number] Voice Confirmation ID: [id number] DOCUMENT ID: [id number] ARIE RODRIGUES III, MD at 1026 CC: [id number] DICTATION DATE: 12/16/16 1100 CONSTRUCTION LINEMAN: 12/16/16 1416 [facility] IN [place] [id number] [place] [address]
--- NOTE | 2016-12-17 15:00 | NUR ---
ALERT AND ORIENTED, CALM AND COOPERATIVE WITH CARE AND ASSESSMENT, STAYING IN DAYROOM MORE TODAY. SHE IS HALLUCINATING, BUT TRIES TO HID IT NOW. SHE TURNS AWAY AND SPEAKS SOFTLY TO THE VOICES IN HER HEAD. ADMINISTERED PRESCRIBED MEDICATIONS. COMPLIANT WITH TAKING MEDS. CONTINUE PLAN OF CARE.
[2016-12-17 19:23] VITALS: BP 134/70
--- NOTE | 2016-12-18 01:08 | NUR ---
B) Patient alert and oriented, calm and cooperative, social with peers and staff, no hallucinatuions noted this shift, I) Administered scheduled medications, monitored for behaviors and hallucinations, R) Medications compliant, friendly and talkative this shift, P) Continue plan of care.
--- NOTE | 2016-12-18 07:37 | NUR ---
B) PATIENT IS AWAKE AND ALERT, SHE REFUSED LAB TO DRAW ANY BLOOD FROM HER. SHE IS INDEPENDENT TO AMBULATE. PATIENT KNOWS HER NAME, BUT NOT PLACE OR SITUATION. SHE IS STARING OUT BLANKLY. SHE IS QUIET, BUT HAS BEEN POLITE. I) PROVIDE PRESCRIBED MEDS. R) PATIENT IS QUIET AND CALM, HAVE NOT SEEN ANY ATTENDING TO VOICES THIS AM, WILL MONITOR. P) CONTINUE POC.
[2016-12-18 08:19] VITALS: BP 147/81
--- NOTE | 2016-12-18 11:00 | NUR ---
PATIENT SITTING OVER BY ANOTHER PATIENT AND DID NOTICE OUT OF THE BLUE THAT THE PATIENT BEGAN LAUGHING WITHOUT ANYONE SAYING ANYTHING TO HER, SHE WAS INVITED TO AN ACTIVITY, BUT SHE WAS UNABLE TO FOCUS, SHE THEN MOVED TO A MORE ISOLATIVE AREA IN THE DAY ROOM. CONTINUE TO MONITOR.
[2016-12-18 20:44] VITALS: BP 117/69
--- NOTE | 2016-12-19 01:58 | NUR ---
B) Patient alert and oriented, calm and cooperative, withdrawn and keeping to herself at times, social with peers at times, I) Administered perscribed medications, monitored for behaviors, R) Medications compliant, no hallucinations this shift, P) Continue plan of care.
[2016-12-19 08:07] VITALS: BP 124/58
--- NOTE | 2016-12-19 08:29 | PN ---
PATIENT:MAGGI GARAY MEDICAL RECORD: [id number] LOCATION:[facility] ADMISSION DATE: 12/07/16 PROGRESS NOTE DATE OF SERVICE: 12/18/2016 SUBJECTIVE: The patient's case was discussed with staff. She has no new complaint. OBJECTIVE: The patient is in good behavioral control with poor insight about her condition. Eye contact is poor. ASSESSMENT: No change in diagnoses. PLAN: Current medicines have been reviewed and will be maintained. Long-term prognosis is guarded. TRANSINT:[id number] Voice Confirmation ID: [id number] DOCUMENT ID: [id number] SABRINA JOSEPH MD at 0829 CC: [id number] DICTATION DATE: 12/18/16 171 CONCRETE PANEL INSTALLER: 12/18/16 2146 ADM IN [place] [id number] [place] [address]
--- NOTE | 2016-12-19 13:01 | NUR ---
B) PATIENT IS FLAT TO BLUNTED IN AFFECT, SHE ANSWERS MOST QUESTIONS APPROPRAITELY. IN ONE GROUP THIS AM SHE TOLD PEOPLE SOME OF THE JOBS SHE HAS HELD. SHE HAS HAD SEVERAL DIFFERENT TYPES OF JOBS, [employer], OTHER STORES, CORRECTION, FACTORIES. SHE HAS ISOLATED IN THE DINING ROOM A LOT TODAY, BUT SAYS "I FEEL LIKE I'M NOT SICK I WAS" PATIENT AMBULATES WELL INDEPENDENTLY. SHE HAS NOT BEEN LAUGHING OUT LOUD THIS AM, BUT SHE DOES ISOLATE AWAY FROM THE GROUP. I) PROVIDE PRESCRIBED MEDS. R) PATIENT IS COMPLIANT WITH HER MEDS. P) CONTINUE POC.
[2016-12-19 19:00] VITALS: BP 130/64
--- NOTE | 2016-12-20 02:34 | NUR ---
B) Patient alert and oriented, social with staff and peers, prefers small groups with less noise, I) Administered schduled medications, monitored for hallucinations, R) Medication compliant, no hallucinatons noted this shift, P) Continue plan of care.
[2016-12-20 07:00] VITALS: BP 153/81
--- NOTE | 2016-12-20 13:55 | NUR ---
B) PATIENT AFFECT IS MORE BLUNTED TODAY. SMILES AT TIMES, ALERT, CALM AND COOPERATIVE WITH ASSESSMENT. SOCIAL WITH PEERS AND STAFF. HAS NOT ISOLATED HERSELF IN DINING ROOM TODAY. SHE AMBULATES INDEPENDENTLY. I) ADMINISTERED PRESCRIBED MEDICATIONS. VSS. R) COMPLIANT WITH MEDICATIONS. MONITOR FOR SAFETY. P) MAINTAIN FALL PRECAUTIONS AND CONTINUE PLAN OF CARE.
[2016-12-20 19:30] VITALS: BP 127/78
--- NOTE | 2016-12-20 21:49 | NUR ---
RECIVED IN HALLWAY. WALKING TO BEDROOM. WITHDRAWN FROM OTHERS. STATING "I AIN'T LETTING NO ONE KNOW SHIT AND I DONT WANT HELP FORM ANYONE." CALM AND COOPERATIVE WITH CARE AND ASSESSMENTS. NO SIGNS OF AGGRESSION OR HALLUCINATIONS. REDIRECT NEEDED. ENCOURAGE TO EXPRESS NEEDS. SITTING ON EDGE OF BED EATING A SNACK AT THIS TIME. CONTINUE PLAN OF CARE
[2016-12-21 07:00] VITALS: BP 119/80
--- NOTE | 2016-12-21 10:23 | PN ---
PATIENT:MAGGI GARAY MEDICAL RECORD: [id number] LOCATION:[facility] ADMISSION DATE: 12/07/16 PROGRESS NOTE DATE OF SERVICE: 12/17/2016 SUBJECTIVE: No new complaint. OBJECTIVE: Staff reports the patient continues to respond to internal stimuli. She can be observed and talking to unseen people frequently. The patient tends to discontinue this when she knows she is being observed. She appears to be tolerating medication changes without difficulty. On exam, mood is euthymic. Affect is very constricted. Speech is low in volume, but fairly fluent. Content of thought is still positive for auditory hallucinations and apparent delusional ideation. Sensorium is unchanged. ASSESSMENT: No change in diagnosis. PLAN: 1. Maintain current medication regimen. 2. Continue supportive therapy. TRANSINT:[id number] Voice Confirmation ID: [id number] DOCUMENT ID: [id number] ARIE RODRIGUES III, MD at 1023 CC: [id number] DICTATION DATE: 12/17/16 1126 PAPER MILL SUPERVISOR: 12/17/16 1344 ADM IN [facility] [address] [place] [id number]
--- NOTE | 2016-12-21 13:31 | PN ---
PATIENT:MAGGI GARAY MEDICAL RECORD: [id number] LOCATION:[facility] ADMISSION DATE: 12/07/16 PROGRESS NOTE DATE OF SERVICE: 12/19/2016 SUBJECTIVE: The patient's case was discussed with staff. She has no new complaint. OBJECTIVE: The patient is in good behavioral control with poor insight about her condition. She does tolerate her medicines well. She appears to be attending to stimuli not present, but denies any delusions or hallucinations. ASSESSMENT: No change in diagnoses. PLAN: Supportive and educational interventions were made. Intermediate prognosis is guarded. TRANSINT:[id number] Voice Confirmation ID: [id number] DOCUMENT ID: [id number] SABRINA JOSEPH MD at 1331 CC: [id number] DICTATION DATE: 12/19/16911 SILK SCREEN PRINTING RACKER: 12/19/16 1640 ADM IN [place] [id number] [place] [id number]
[2016-12-21 20:00] VITALS: BP 120/73
--- NOTE | 2016-12-21 23:24 | NUR ---
RECEIVED IN BEDROOM. SITTING ON BED. WITHDRAWN FROM HER PEERS THIS EVENING. CALM AND COOPERATIVE WITH CARE AND ASSESSMENT. NO SIGNS OF HALLUCINATIONS. ENCOURAGE TO EXPRESS NEEDS. RESTING IN BED WITH EYES CLOSED. CONTINUE PLAN OF CARE
[2016-12-22 07:00] VITALS: BP 118/92
--- NOTE | 2016-12-22 14:32 | NUR ---
PATIENT HAS BEEN PLEASANT. NO FOUL LANGAUGE. TOOK ALL OF HER MEDCIATIONS WITHOUT DIFFICULTY. SITTING UP IN CHAIR IN THE DAY ROOM.
[2016-12-22 19:15] VITALS: BP 115/71
--- NOTE | 2016-12-22 20:12 | NUR ---
RECEIVED IN DAYROOM. NOT SOCIALING WITH PEERS. WITHDRAWN. SITTING IN CORNER. CALM AND COOPERATIVE WITH CARE AND ASSESSMENTS. NO SIGNS OF HALLUCINATIONS. CONTINUES TO SITTING BY HERSELF. CONTINUE PLAN OF CARE
[2016-12-23 08:00] VITALS: BP 131/79
--- NOTE | 2016-12-23 09:31 | NUR ---
PT ALERT, SITTING UP IN DAYROOM. PT AM MEDS ADMINISTERED. PT TOOK MEDS WITHOUT DIFFICULYT. PT DENIES NEEDS. WCTM.
--- NOTE | 2016-12-23 10:05 | PN ---
PATIENT:MAGGI GARAY MEDICAL RECORD: [id number] LOCATION:[facility] ADMISSION DATE: 12/07/16 PROGRESS NOTE DATE OF SERVICE: 12/22/2016 SUBJECTIVE: No new complaint. OBJECTIVE: The patient has continued to show considerable improvement. We do anticipate discharge later this week. On exam, mood is euthymic, affect is reserved. Speech is fairly fluent. Content of thought shows no overt psychosis. Sensorium is unchanged. ASSESSMENT: No change in diagnosis. PLAN: We will plan for a gradual transition to [facility]. We will today reduce Zyprexa to 10 mg b.i.d. and schedule Risperdal Consta 50 mg IM tomorrow. Once the patient transitions to outpatient, recommendation will be to either continue on Risperdal and/or change to Invega Sustenna. TRANSINT:[id number] Voice Confirmation ID: [id number] DOCUMENT ID: [id number] ARIE RODRIGUES III, MD at 1005 CC: [id number] DICTATION DATE: 12/22/16 1305 ILLUSIONIST: 12/22/16 1615 ADM IN [facility] [address] [place] [address]
[2016-12-23] MEDS ORDERED: DEPAKOTE500 MG PO (11:22)
[2016-12-23] MEDS ORDERED: ZYPREXA ZYDI5 MG/TAB PO (11:22)
--- NOTE | 2016-12-23 19:45 | NUR ---
RECEIVED IN DAYROOM. SITTING IN A RECLINER. KEEPING TO HERSELF. NOT SOCIALIZING WITH PEERS OR STAFF. CALM AND COOPERATIVE WITH CARE AND ASSESSMENTS. NO SIGNS OF HALLUCIANTIONS. CONTINUE PLAN OF CARE
[2016-12-23 20:18] VITALS: BP 130/73
--- NOTE | 2016-12-24 04:34 | PN ---
PATIENT:MAGGI GARAY MEDICAL RECORD: [id number] LOCATION:[facility] ADMISSION DATE: 12/07/16 PROGRESS NOTE DATE OF SERVICE: 12/23/2016 SUBJECTIVE: No new complaint. OBJECTIVE: The patient has continued to do well. No further evidence of overt psychosis. On exam, mood is euthymic. Affect is somewhat constricted. Speech is fluent. Content of thought as noted above. Sensorium shows no change. ASSESSMENT: No change in diagnoses. PLAN: 1. Because Risperdal Consta and Invega Sustenna are not on the hospital formulary, the patient will be left on Zyprexa at the time of discharge. Plans will be to refer her to [facility] at the time of discharge, and the recommendation will further be to have her placed on Invega Sustenna. 2. Anticipate discharge tomorrow. TRANSINT:[id number] Voice Confirmation ID: [id number] DOCUMENT ID: [id number] ARIE RODRIGUES III, MD at 0434 CC: [id number] DICTATION DATE: 12/23/16 1144 CHIEF MEDICAL PHYSICIST: 12/23/16 1801 ADM IN [facility] [address] [place] [address]
[2016-12-24 08:00] VITALS: BP 120/66
[2016-12-24 09:47] VITALS: Ht 172.7 cm; Wt 48.4 kg
--- NOTE | 2016-12-24 13:04 | NUR ---
B) PATIENT IS AWAKE AND ALERT, SHE IS READY TO D/C, CLOTHES AND PAPERWORK COMPLETE. PATIENT HAS NOT BEEN SEEN HALLUCINATING TODAY. SHE IS ABLE TO AMBULATE INDEPENDENTLY. I) PROVIDE PRESCRIBED MEDS. R) PATIENT IS COMPLIANT WITH MEDS AND UNIT [facility]. P) CONTINUE POC.
--- NOTE | 2016-12-24 15:30 | NUR ---
PATIENT HAS D/C'D TO HOME WITH HER DAUGHTER. KERMIT WOO SENIOR STRUCTURAL ENGINEER ASSISTED WITH THE D/C AND EXPLAINATION.
--- NOTE | 2016-12-25 05:41 | DS ---
PATIENT:MAGGI GARAY :52 MEDICAL RECORD: [id number] DISCHARGE SUMMARY ADMISSION DATE: 12/07/16 DISCHARGE DATE: 12/24/16 DATE OF ADMISSION: 12/07/2016 DATE OF DISCHARGE: 12/24/2016 HISTORY OF PRESENT ILLNESS: A 66-year-old unmarried white female, who presented with acute psychosis. The patient has a past history of schizoaffective disorder. She had been living at home, but had stopped taking her medications. She had begun making bizarre statements and was having delusions that someone was trying to poison her. She was also experiencing persistent and intrusive auditory hallucinations of a command nature. For further details, please see previously dictated history. COURSE IN THE HOSPITAL: The patient was seen in consultation by Dr. Mcconnell. Dr. Mcconnell noted the presence of chronic obstructive pulmonary disease, hypertension, gastroesophageal reflux disease, cardiac arrhythmias and a past history of breast cancer. From a medication standpoint, the patient was started on Zyprexa dosage, was advanced as high as 20 mg twice a day, but toward discharge, it was reduced back to 10 mg twice a day. The patient was also placed on Depakote DR 500 mg b.i.d. She achieved a blood level of 44.3, which is quite close to the therapeutic range. She was kept on other routine nonpsychiatric medications including Rythmol 225 mg twice a day, Toprol-XL 25 mg daily, Pepcid 20 mg b.i.d., Arimidex 1 mg daily, and albuterol inhaler. The patient showed persistent and severe psychotic symptoms during the first 8-10 days of the hospitalization, she was frequently noted to be responding to internal stimuli and had to be redirected with the increase in Zyprexa Zydis dosage and the patient finally began to show resolution of her acute psychosis. By the time of discharge, she was stabilized. The plan at the time of discharge was to have the patient started on Invega Sustenna injections; however, these were not available through the hospital formulary and therefore it is recommended the patient be started on these injections when she is established on an outpatient basis. FINAL DIAGNOSES: AXIS I: Schizoaffective disorder-improving. AXIS II: No diagnosis. AXIS III: Chronic obstructive pulmonary disease, gastroesophageal reflux disease, history of hypertension and cardiac arrhythmias. AXIS IV: Moderate. AXIS V: 40. PLAN: 1. The patient is discharged on current medication. 2. The patient is to follow up with the office of [facility] in [place]. 3. Follow up with primary care. 4. It is recommended the patient be started on Invega Sustenna injections on an outpatient basis with a view of eventually discontinuing Zyprexa Zydis. TRANSINT:[id number] Voice Confirmation ID: [id number] DOCUMENT ID: [id number] DISCHARGE SUMMARY REPORT [id number] MAGGI GARAY III, ARIE Pena MD at 0541 CC: [id number] DICTATION DATE: 12/24/168 SENIOR PASTOR: 12/25/16 0308 DIS IN 12/24/16 [place] [id number] [place] [address]
== END 2016-12-24 15:30 | disposition home or self-care (01) | DRG 885 ==
LOC: D.PSYCH 18:05
PROVIDERS: ADMIT Psychiatry & Neurology Psychiatry
DX: F25.9 Schizoaffective disorder, unspecified (principal); F32.9 Major depressive disorder, single episode, unspecified; Z72.0 Tobacco use; Z85.3 Personal history of malignant neoplasm of breast; I10 Essential (primary) hypertension; K21.9 Gastro-esophageal reflux disease without esophagitis; J44.9 Chronic obstructive pulmonary disease, unspecified

== ENCOUNTER 2017-04-15 17:50 | Inpatient (IN) | payer MEDICARE ==
[~2017-04-15] VITALS: Ht 172.7 cm; Wt 46.4 kg
--- NOTE | ~2017-04-15 | PN ---
PATIENT:MAGGI GARAY MEDICAL RECORD: [id number] LOCATION:[facility] ADMISSION DATE: 04/15/17 PROGRESS NOTE DATE OF SERVICE: 04/25/2017 SUBJECTIVE: The patient's case was discussed with staff. She has no new complaint. OBJECTIVE: The patient denies intent to harm herself or others. She generally tolerates her medicines well. ASSESSMENT: No change in diagnoses. PLAN: Brief supportive and educational interventions were made. Fdc prognosis is guarded. TRANSINT:[id number] Voice Confirmation ID: [id number] DOCUMENT ID: [id number] SABRINA JOSEPH MD at 1156 CC: [id number] DICTATION DATE: 04/25/17 1210 GEOSCIENCES PROFESSOR: 04/25/17 1239 ADM IN [place] [address] [place] [address]
--- NOTE | ~2017-04-15 | PN ---
PATIENT:MAGGI GARAY MEDICAL RECORD: [id number] LOCATION:[facility] ADMISSION DATE: 04/15/17 PROGRESS NOTE DATE OF SERVICE: 04/23/2017 SUBJECTIVE: The patient's case was discussed with staff. She has no new complaint. OBJECTIVE: The patient is in good behavioral control. She is tolerating her medications well. She has a therapeutic Depakote level. ASSESSMENT: No change in diagnoses. PLAN: The patient is appropriate for discharge once appropriate plans have been made. She does not meet criteria for senior care. She has ongoing and continuous trouble with her home environment and is not capable of living completely independently. She would be a nice candidate for a residential care facility, but it is not clear if she has sufficient money to afford that and in addition to this, it is not clear if she is going to qualify for Medicaid. Once an appropriate placement has been arranged and I understand it is very easy to say that and very difficult to accomplish it, but once appropriate plans have been made, I think it is fine to transition her out of the hospital. TRANSINT:[id number] Voice Confirmation ID: [id number] DOCUMENT ID: [id number] SABRINA JOSEPH MD at 0944 CC: [id number] DICTATION DATE: 04/23/17 1230 ABALONE FISHERMAN: 04/23/17 1241 ADM IN [place] [id number] [place] [address]
--- NOTE | ~2017-04-15 | PN ---
PATIENT:MAGGI GARAY MEDICAL RECORD: [id number] LOCATION:[facility] ADMISSION DATE: 04/15/17 PROGRESS NOTE DATE OF SERVICE: 04/24/2017 SUBJECTIVE: The patient's case was discussed with staff. She has no new complaint. OBJECTIVE: The patient is in good behavioral control with poor insight about her condition. She is tolerating her medicines well. ASSESSMENT: No change in diagnoses. PLAN: Current medicines have been reviewed and will be maintained. Long-term prognosis is guarded. I anticipate that she can be transitioned out of the hospital soon. There are some issues related to discharge planning that have been detailed elsewhere particularly by our social security specialist. TRANSINT:[id number] Voice Confirmation ID: [id number] DOCUMENT ID: [id number] SABRINA JOSEPH MD at 1105 CC: [id number] DICTATION DATE: 04/24/17 1009 BEAN PICKER: 04/24/17 1242 ADM IN [place] [id number] [place] [address]
--- NOTE | ~2017-04-15 | PN ---
PATIENT:MAGGI GARAY MEDICAL RECORD: [id number] LOCATION:[facility] ADMISSION DATE: 04/15/17 PROGRESS NOTE DATE OF SERVICE: 04/27/2017 SUBJECTIVE: The patient's case was discussed with staff. She has no new complaint. OBJECTIVE: The patient is in good behavioral control with limited insight about her condition. She tolerates her medicines well. ASSESSMENT: No change in diagnoses. PLAN: Brief supportive and educational interventions were made. Long-term prognosis is guarded. The patient will be transitioned out of the hospital tomorrow. Followup will be with her primary care physician. The patient does not qualify for senior care, cannot afford assisted living, makes too much money for Medicaid, and has very limited support systems with the exception of her daughter, who is quite responsible, but works time clock repairer and has her own family. The net result is this is not an ideal discharge placement, but it is the best that can be done under the circumstances. I have encouraged her to be social, take her medicines, and have outpatient followup. She has agreed to this. The patient is cognitively intact. She scored 29/[address] Nicole's testing. She agrees to this plan. TRANSINT:[id number] Voice Confirmation ID: [id number] DOCUMENT ID: [id number] SABRINA JOSEPH MD at 1317 CC: [id number] DICTATION DATE: 04/27/17 1250 BOAT FUELER: 04/27/17 1314 ADM IN [facility] [address] [place] [address]
--- NOTE | ~2017-04-15 | PSY ---
PATIENT NAME:MAGGI GARAY MEDICAL RECORD: [id number] : 52 LOCATION:[facility] ADMISSION DATE: 04/15/17 ACCOUNT: [id number] PSYCHIATRIC EVALUATION DATE OF EVALUATION: 04/16/17 IDENTIFYING DATA: This is a 67-year-old white female, who was admitted to [facility] for the second time. She was previously admitted in December of this year. HISTORY OF PRESENT ILLNESS: This patient has a long past history of schizoaffective disorder and has been under psychiatric care a great part of her adult life. She has had several previous hospitalizations because of acute psychotic symptoms. The patient evidently has not been taking her medications as prescribed. She had been living at home, but had lost considerable weight. She has the delusion that she is with a "love child." Her weight had dropped to 103 pounds, which is significantly underweight for her height. Her daughter became quite alarmed. The patient was seen in Dr. Dale's office and then transferred here. The patient has been, in the past, treated at the local counseling Clinic, but has a significant history of noncompliance with medication. PAST MEDICAL HISTORY: The patient has a previous history of cardiac arrhythmias, breast cancer, gastroesophageal reflux disease, hypertension, and chronic obstructive pulmonary disease. FAMILY HISTORY: Significant for 1 son who has a substance abuse problem. SOCIAL HISTORY: The patient has 2 children, a son and a daughter. She is a smoker. There is no report of substance abuse. No history of legal entanglements. ALLERGIES: None listed. MENTAL STATUS EXAMINATION: The patient exhibits very constricted affect. Staff report that she did eat well last night and today and consequently she feels better. Mood is euthymic. Speech is quite terse and monotonous in quality. Content of thought is positive for delusional ideation as described above. The patient is exhibiting extremely poor judgment. She is oriented to person, place and time. Memory appears to be intact. DIAGNOSES: AXIS I: Schizoaffective disorder. AXIS II: No diagnosis. AXIS III: Cardiac arrhythmias, chronic obstructive pulmonary disease, hypertension, gastroesophageal reflux disease, past history of breast cancer. AXIS IV: Severe. AXIS V: 34. PLAN: 1. The patient is readmitted for medication adjustment and further evaluation. 2. Daily supportive therapy. 3. We will coordinate with family regarding aftercare. TRANSINT:[id number] Voice Confirmation ID: [id number] DOCUMENT ID: [id number] ARIE RODRIGUES III, MD at 2107 CC: [id number] DICTATION DATE: 04/16/17 1149 MACHINE BRUSHER: 04/16/17 1305 ADM IN [facility] [address] [place] [address]
--- NOTE | ~2017-04-15 | PN ---
PATIENT:MAGGI GARAY MEDICAL RECORD: [id number] LOCATION:[facility] ADMISSION DATE: 04/15/17 PROGRESS NOTE DATE OF SERVICE: 04/19/2017 SUBJECTIVE: No new complaint. OBJECTIVE: Staff reports the patient remains very flat. She is eating better, which is a significant improvement. PHYSICAL EXAMINATION: On exam, the patient denies that there were men living in her house with her prior to admission. She seems a little skeptical about placement plans, although she states that will "be up to my daughter." Mood is euthymic. Affect is very constricted. Speech is low in volume and rather terse, but no other language disorder is noted. Content of thought is positive for delusional ideation. Sensorium is unchanged. ASSESSMENT: No change in diagnosis. PLAN: 1. Continue current medications. 2. Continue supportive therapy. TRANSINT:[id number] Voice Confirmation ID: [id number] DOCUMENT ID: [id number] LILIA STAPLETON, ARIE Pena MD at 1019 CC: [id number] DICTATION DATE: 04/19/17 1149 GEOTHERMAL ELECTRICAL ENGINEER: 04/19/17 1206 ADM IN [place] [id number] [place] [address]
--- NOTE | ~2017-04-15 | DS ---
PATIENT:MAGGI GARAY :52 MEDICAL RECORD: [id number] DISCHARGE SUMMARY ADMISSION DATE: 04/15/17 DISCHARGE DATE: 04/28/17 DATE OF ADMISSION: 04/15/2017 DATE OF DISCHARGE: 04/28/2017 HISTORY OF PRESENT ILLNESS: A 67-year-old white female with a previous diagnosis of schizoaffective disorder -- depressed type. The patient has a long past history of schizoaffective disorder and has had numerous hospitalizations for this. At the time of admission, she had not been taking her medications as prescribed. She had lost a great deal of weight and was actively delusional. For further details, please see previously dictated history. COURSE IN THE HOSPITAL: The patient was seen in consultation by Dr. Jimenez. Dr. Jimenez noted the presence of COPD, hypertension, GERD, history of breast cancer, cardiac arrhythmias. The patient was maintained on antipsychotic medication, Zyprexa 15 mg h.s., was given with fairly good results. The patient was also maintained on Depakote DR 500 mg b.i.d. The patient achieved a therapeutic blood level of valproic acid at 63.6. Otherwise, the patient was kept on her nonpsychiatric medication which included Toprol-XL 25 mg daily, anastrozole 1 mg daily, Rythmol 225 mg twice a day, Pepcid 20 mg twice a day. The patient showed a good resolution of her acute psychosis. She began to eat better and was very cooperative with staff. Sensorium remained clear. Arrangements were made for the patient to return home with [facility]. FINAL DIAGNOSES: AXIS I: Schizoaffective disorder, depressed type -- improving. AXIS II: No diagnosis. AXIS III: Chronic obstructive pulmonary disease, cardiac arrhythmias, hypertension, gastroesophageal reflux disease, past history of breast cancer. AXIS IV: Moderate. AXIS V: 50. PLAN: 1. The patient is discharged on current medications. 2. Follow up through primary care physician and [facility]. 3. Diet and activities as tolerated. 4. Followup through [facility]. TRANSINT:[id number] Voice Confirmation ID: [id number] DOCUMENT ID: [id number] ARIE RODRIGUES III, MD at 1033 CC: [id number] DICTATION DATE: 05/04/17 112 CLOTH FEEDER: 05/04/17 1239 DIS IN 04/28/17 [facility] [address] [place] [address]
--- NOTE | ~2017-04-15 | PN ---
PATIENT:MAGGI GARAY MEDICAL RECORD: [id number] LOCATION:[facility] ADMISSION DATE: 04/15/17 PROGRESS NOTE DATE OF SERVICE: 04/22/2017 SUBJECTIVE: The patient states that she is feeling better. OBJECTIVE: The patient has continued to eat well. She is compliant with her medication. The biggest challenges are aftercare. The patient likely will not qualify for shelter and it is questionable as to whether she would qualify for a residential care facility. On exam, her mood is euthymic. Affect is very constricted. Speech is terse, but otherwise no language disorder. Content of thought is negative for overt psychosis. Sensorium shows no change. ASSESSMENT: No change in diagnoses. PLAN: 1. Continue working on treatment options after discharge. 2. Continue current medications and supportive therapy. TRANSINT:[id number] Voice Confirmation ID: [id number] DOCUMENT ID: [id number] ARIE RODRIGUES III, MD at 0826 CC: [id number] DICTATION DATE: 04/22/17 1134 BORING INSPECTOR: 04/22/17 1147 DIS IN 04/28/17 [place] [id number] [place] [id number]
--- NOTE | ~2017-04-15 | PN ---
PATIENT:MAGGI GARAY MEDICAL RECORD: [id number] LOCATION:[facility] ADMISSION DATE: 04/15/17 PROGRESS NOTE DATE OF SERVICE: 04/28/2017 SUBJECTIVE: The patient's case was discussed with staff. She has no new complaint. OBJECTIVE: The patient is in good behavioral control with poor insight about her condition. She tolerates her medicines well. ASSESSMENT: No change in diagnoses. PLAN: The patient is going to be transitioned out of the hospital today. Followup will be with her primary care physician. TRANSINT:[id number] Voice Confirmation ID: [id number] DOCUMENT ID: [id number] SABRINA JOSEPH MD at 1322 CC: [id number] DICTATION DATE: 04/28/17 1337 BEAMING MACHINE OPERATOR: 04/28/17 1355 DIS IN 04/28/17 [place] [id number] [place] [address]
--- NOTE | ~2017-04-15 | PN ---
PATIENT:MAGGI GARAY MEDICAL RECORD: [id number] LOCATION:[facility] ADMISSION DATE: 04/15/17 PROGRESS NOTE DATE OF SERVICE: 04/21/2017 SUBJECTIVE: No new complaint. OBJECTIVE: The patient scored a 29/30 on the [facility] Mental Status exam. She has been cooperative, but affect remains very flat. Oral intake is better. On exam, mood is euthymic. Affect is reserved. Speech is fairly terse. Content of thought is positive for covert delusional ideation. Sensorium shows no change. ASSESSMENT: No change in diagnosis. PLAN: 1. Maintain current treatment plan. 2. Continue supportive therapy. TRANSINT:[id number] Voice Confirmation ID: [id number] DOCUMENT ID: [id number] ARIE RODRIGUES III, MD at 1101 CC: [id number] DICTATION DATE: 04/21/17 1102 ECDIS N NAVIGATION OPERATOR: 04/21/17 1148 ADM IN [place] [id number] [place] [address]
--- NOTE | ~2017-04-15 | PN ---
PATIENT:MAGGI GARAY MEDICAL RECORD: [id number] LOCATION:[facility] ADMISSION DATE: 04/15/17 PROGRESS NOTE DATE OF SERVICE: 04/17/2017 SUBJECTIVE: No new complaint. OBJECTIVE: The patient is eating better. She exhibits somewhat less delusional ideation. PHYSICAL EXAMINATION: On exam, mood is euthymic. Affect very constricted. Speech shows latency. Content of thought as noted above. Sensorium unchanged. ASSESSMENT: No change in diagnosis. PLAN: 1. Maintain current medications. 2. Continue supportive therapy. TRANSINT:[id number] Voice Confirmation ID: [id number] DOCUMENT ID: [id number] ARIE RODRIGUES III, MD at 1108 CC: [id number] DICTATION DATE: 04/17/17 1041 SECURITY SYSTEMS SPECIALIST: 04/17/17 [address] [facility] [address] [place] [address]
--- NOTE | ~2017-04-15 | PN ---
PATIENT:MAGGI GARAY MEDICAL RECORD: [id number] LOCATION:[facility] ADMISSION DATE: 04/15/17 PROGRESS NOTE DATE OF SERVICE: 04/20/2017 SUBJECTIVE: No new complaint. OBJECTIVE: The patient is scheduled for neuropsychological testing today. She has been compliant with medication, but she remains rather delusional. On exam, mood euthymic. Affect very flat. Speech very low in volume and terse. Content of thought exhibits some delusional ideation. Sensorium shows no change. ASSESSMENT: No change in diagnosis. PLAN: 1. Continue current medication. 2. Continue supportive therapy. TRANSINT:[id number] Voice Confirmation ID: [id number] DOCUMENT ID: [id number] ARIE RODRIGUES III, MD at 1011 CC: [id number] DICTATION DATE: 04/20/17 1044 WELDING MACHINE OPERATOR HELPER ARC: 04/20/17 1114 ADM IN [facility] [address] [place] [address]
[~2017-04-15 17:50] MED LIST changes: +ZYPREXA ZYDI5 MG/TAB PO
[2017-04-15] MEDS ORDERED: ZYPREXA15 MG PO (18:30)
[2017-04-15] MEDS ORDERED: ZYPREXA5 MG PO (18:30)
[2017-04-15 18:44] VITALS: BP 184/100; BMI 15.6
[2017-04-15 19:59] VITALS: BP 136/70
[2017-04-16 07:36] LABS: BASOPHILS 1.3 % (0-2); EOSINOPHILS 3.8 % (0-7); HEMATOCRIT 42.8 % (36.0-48.0); HEMOGLOBIN 14.5 g/dL (12-16); IMMATURE GRANULOCYTES 0.3 % (0-5); LYMPHOCYTES 39.4 % (15-50); MCH 32.5 pg (26.0-34.0); MCHC 33.9 g/dL (31.0-37.0); MEAN PLATELET VOLUME 11.5 fL (7.4-10.4); MONOCYTES 13.6 % (2-11); NEUTROPHILS 41.6 % (40-80); PLATELET COUNT 199 10x3/uL (130-400); RBC 4.46 10x6/uL (4.00-5.40); RDW 15.2 % (11.5-14.5); WBC 3.9 10x3/uL (4.8-10.8)
[2017-04-16 08:03] LABS: ALBUMIN 2.9 g/dL (3.4-5.0); ALKALINE PHOSPHATASE 66 U/L (46-116); ALT (SGPT) 9 U/L (10-68); BILIRUBIN - TOTAL 0.25 mg/dL (0.2-1.3); CALC OSMOLALITY 280 mosm/kg (275-300); CALCIUM 8.6 mg/dL (8.5-10.1); CARBON DIOXIDE 30.7 mmol/L (21.0-32.0); CHLORIDE - SERUM 108 mmol/L (98-107); CHOL - HDL RATIO 2.2 ratio (2.3-4.1); CHOLESTEROL, TOTAL 141 mg/dL (0-200); CREATININE - SERUM 0.6 mg/dL (0.6-1.3); GLUCOSE 89 mg/dL (74-106); HDL CHOLESTEROL 64 mg/dL (32-96); LDL CHOLESTEROL 66 mg/dL (0-100); POTASSIUM - SERUM 4.2 mmol/L (3.5-5.1); PROTEIN - SERUM 5.7 g/dL (6.4-8.2); SODIUM 142 mmol/L (136-145); THYROID STIMULATING HORMONE 1.03 uIU/mL (0.36-3.74); TRIGLYCERIDE 59 mg/dL (30-200); UREA NITROGEN 9 mg/dL (7-18); eGFR NON AFRICAN AMERICAN > 90 mL/min (90-120)
[2017-04-16 08:30] VITALS: BP 156/090
[2017-04-16 10:13] VITALS: BMI 15.6
[2017-04-17 07:00] VITALS: BP 134/77
[2017-04-17 08:16] LABS: FOLATE (FOLIC ACID) - SERUM 6.9 ng/mL (>3.0)
[2017-04-17 22:30] VITALS: BP 153/71
[2017-04-18 08:18] VITALS: BP 141/077
[2017-04-18 19:30] VITALS: BP 119/89
[2017-04-19 03:30] LABS: VITAMIN D 25 HYDROXY 19.2 ng/mL (30.0-100.0)
[2017-04-19 08:00] VITALS: BP 127/067
[2017-04-19 09:27] LABS: AMORPHOUS SEDIMENT >1+ /lpf (NONE SEEN); APPEARANCE HAZY (CLEAR); BACTERIA MODERATE /hpf (NONE SEEN); BILIRUBIN NEGATIVE (NEGATIVE); COLOR YELLOW (YELLOW); GLUCOSE NEGATIVE (NEGATIVE); GRANULAR CAST OCC /lpf (NONE SEEN); KETONE NEGATIVE (NEGATIVE); MUCUS <1+ /lpf (NONE SEEN); NITRITE NEGATIVE (NEGATIVE); PROTEIN NEGATIVE (NEGATIVE); RED CELLS - URINE OCC /hpf (0-5); UROBILINOGEN NORMAL (NORMAL)
[2017-04-19 20:29] VITALS: BP 151/80
[2017-04-20 07:57] VITALS: BP 114/76
[2017-04-20 20:59] VITALS: BP 134/80
[2017-04-21 09:44] VITALS: BP 132/109
[2017-04-21 19:30] VITALS: BP 116/69
[2017-04-22 08:00] VITALS: BP 114/65
[2017-04-22 09:04] VITALS: BP 114/65
[2017-04-22 10:00] VITALS: Ht 172.7 cm; Wt 46.4 kg
[2017-04-22 21:29] VITALS: BP 117/68
[2017-04-23 09:34] VITALS: BP 107/63
[2017-04-23 19:35] VITALS: BP 104/43
[2017-04-24 10:20] VITALS: BP 118/64
[2017-04-24 20:03] VITALS: BP 111/60
[2017-04-25 07:00] VITALS: BP 99/56
[2017-04-25 19:53] VITALS: BP 109/62
[2017-04-26 08:31] VITALS: BP 098/068
[2017-04-26 19:21] VITALS: BP 122/67
[2017-04-27 07:00] VITALS: BP 131/70
[2017-04-27] MEDS ORDERED: VITAMIN D5000 UNIT PO (12:48)
[2017-04-27] MEDS ORDERED: FLORAJEN3 CAPS460 MG PO (12:48)
[2017-04-27 19:46] VITALS: BP 127/73
[2017-04-28 08:55] VITALS: BP 119/068
== END 2017-04-28 13:53 | disposition home health service (06) | DRG 885 ==
LOC: D.PSYCH 17:50
PROVIDERS: Psychiatry & Neurology Psychiatry
DX: F25.1 Schizoaffective disorder, depressive type (principal); N39.0 Urinary tract infection, site not specified; I49.9 Cardiac arrhythmia, unspecified; J44.9 Chronic obstructive pulmonary disease, unspecified; I10 Essential (primary) hypertension; K21.9 Gastro-esophageal reflux disease without esophagitis; Z85.3 Personal history of malignant neoplasm of breast; K58.9 Irritable bowel syndrome, unspecified; Z72.0 Tobacco use; E55.9 Vitamin D deficiency, unspecified

== ENCOUNTER 2017-09-26 20:04 | Inpatient (IN) | payer MEDICARE ==
[~2017-09-26] VITALS: Ht 172.7 cm; Wt 51.9 kg
--- NOTE | ~2017-09-26 | HP ---
PATIENT: MAGGI GARAY MEDICAL RECORD: [id number] ACCOUNT: [id number] LOCATION:D.MS Lucio2239 : 52 ADMISSION DATE: 09/26/17 HISTORY AND PHYSICAL EXAMINATION REASON FOR ADMISSION: Fall with displaced right humeral neck fracture. HISTORY OF PRESENT ILLNESS: The patient is a 67-year-old female with a history of CAD and schizoaffective disorder. She states she was bending over to moss picker something her dog has been chewing when she tripped and fell on to her right shoulder. She also hit her head without loss of consciousness. She had immediate exquisite pain, was brought to the Emergency Room by her daughter. Exam there showed a displaced right femoral and proximal neck fracture with displacement. Due to pain, she is now being admitted for surgical correction in the morning. She denies any syncopal episode. PAST MEDICAL HISTORY: Schizoaffective disorder, COPD, essential hypertension, history of paroxysmal atrial fibrillation, GERD, breast cancer, history of cataracts, weight loss due to poor appetite. PAST SURGICAL HISTORY: Cholecystectomy, appendectomy, partial gastric resection in 1999, left breast biopsy for carcinoma. PTCA for CAD. ALLERGIES: TOPICAL NICOTINE PATCH CAUSING RASH AND ITCHING. FAMILY HISTORY: Positive for alpha-1 antitrypsin deficiency in her brother. SOCIAL HISTORY: She lives in [place]. Her daughter and son attempt to take care of her, but she has poor appetite and continued weight loss and continues to smoke. REVIEW OF SYSTEMS: CONSTITUTIONAL: Gradual weight loss. No fever. HEENT: No recent visual change, sinus congestion, or sore throat or hearing difficulty. RESPIRATORY: Intermittent cough, nonproductive. No real shortness of breath currently. No hemoptysis. CARDIAC: No exertional chest pain or claudication. GASTROINTESTINAL: No nausea, vomiting, change in stools or blood per rectum. GYNECOLOGIC: No vaginal bleeding. ENDOCRINE: Denies polyuria, polydipsia, heat or cold intolerance. NEUROLOGIC: No history of stroke, TIA, or vascular headaches. PSYCHIATRIC: History of schizoaffective disorder with hallucinosis. She was hospitalized approximately a year ago in the [facility] here. Currently, she is doing pretty well on her medication regimen according to her daughter. CURRENT MEDICATIONS: Remeron 15 mg at bedtime, Zyprexa 5 mg 1 in the morning and 3 in the evening, famotidine 20 mg p.o. at bedtime, metoprolol succinate ER 25 mg p.o. daily, divalproex 500 mg 2 tabs p.o. at bedtime, ____ 1 mg p.o. daily, lisinopril 10 mg p.o. daily, propafenone 225 mg p.o. b.i.d., vitamin D 5000 units 2 tabs p.o. weekly, Remeron 15 mg at bedtime. PHYSICAL EXAMINATION: VITAL SIGNS: Temperature is 97.7, pulse 72 and regular, respirations are 20, HISTORY AND PHYSICAL [id number] MAGGI GARAY blood pressure 112/81, sat 97% on room air. Weight 113 pounds, height of 172.7 cm. GENERAL: The patient is alert and oriented at this time, in no acute distress after pain medication given. HEENT: Her eyes are clear. Oropharynx unremarkable. Fair dentition. NECK: Supple. CHEST: Clear. HEART: Regular rate and rhythm. MUSCULOSKELETAL: Her right shoulder shows marked edema anteriorly over the deltoid with internal rotation deformity of the humerus proximally. She has good distal radial pulse in the right hand. ABDOMEN: Soft, nontender. EXTREMITIES: Otherwise, no CC and E. NEUROLOGICAL: The patient is oriented to person, place, and time. Cranial nerves are intact. Gait was not tested. She has good strength in her lower extremities. LABORATORY DATA: Currently pending. EKG shows sinus rhythm with T-wave inversion in lead aVL, otherwise unremarkable. ASSESSMENT: 1. Fall with a displaced right proximal femoral neck fracture. 2. Chronic obstructive pulmonary disease. 3. Hypertension. 4. History of schizoaffective disorder. 5. Nicotine addiction. 6. History of paroxysmal atrial fibrillation. PLAN: Continue home medications until n.p.o. after midnight for presumed surgery by Dr. Cuevas in the morning. Hospital course and diagnosis discussed with her daughter. TRANSINT:[id number] Voice Confirmation ID: [id number] DOCUMENT ID: [id number] SERENA VACA MD at 0752 CC: [id number] DICTATION DATE: 09/26/172309 DIVINITY PROFESSOR: 09/27/17 0614 [facility] [place] [address]
[~2017-09-26 20:04] MED LIST changes: +FLORAJEN3 CAPS460 MG PO; +VITAMIN D5000 UNIT PO; +ZYPREXA15 MG PO; +ZYPREXA5 MG PO
[2017-09-26 21:21] LABS: EOSINOPHILS 1.5 % (0-7); HEMATOCRIT 44.4 % (36.0-48.0); HEMOGLOBIN 15.8 g/dL (12-16); IMMATURE GRANULOCYTES 0.3 % (0-5); LYMPHOCYTES 24.2 % (15-50); MCH 34.1 pg (26.0-34.0); MCHC 35.6 g/dL (31.0-37.0); MCV 95.9 fL (80.0-100.0); MEAN PLATELET VOLUME 10.5 fL (7.4-10.4); MONOCYTES 10.4 % (2-11); NEUTROPHILS 62.6 % (40-80); PLATELET COUNT 225 10x3/uL (130-400); RBC 4.63 10x6/uL (4.00-5.40); RDW 14.5 % (11.5-14.5); WBC 8.7 10x3/uL (4.8-10.8)
[2017-09-26 21:34] LABS: ALBUMIN 3.6 g/dL (3.4-5.0); ALKALINE PHOSPHATASE 68 U/L (46-116); ALT (SGPT) 15 U/L (10-68); BILIRUBIN - TOTAL 0.32 mg/dL (0.2-1.3); CALC OSMOLALITY 271 mosm/kg (275-300); CALCIUM 9.2 mg/dL (8.5-10.1); CARBON DIOXIDE 32.1 mmol/L (21.0-32.0); CHLORIDE - SERUM 100 mmol/L (98-107); CREATININE - SERUM 0.7 mg/dL (0.6-1.3); GLUCOSE 95 mg/dL (74-106); PROTEIN - SERUM 6.9 g/dL (6.4-8.2); SODIUM 137 mmol/L (136-145); UREA NITROGEN 8 mg/dL (7-18); eGFR NON AFRICAN AMERICAN 89 mL/min (90-120)
[2017-09-26] MEDS ORDERED: DEPAKOTE500 MG PO (23:34)
[2017-09-26] MEDS ORDERED: VITAMIN D5000 UNIT PO (23:35)
[2017-09-26] MEDS ORDERED: BENADRYL50 MG PO (23:37)
[2017-09-27 01:23] VITALS: BP 133/56; Ht 172.7 cm; Wt 51.9 kg
[2017-09-27 02:15] VITALS: BP 133/56
[2017-09-27 04:39] VITALS: BP 138/60
[2017-09-27 05:09] LABS: BASOPHILS 0.4 % (0-2); EOSINOPHILS 0.1 % (0-7); HEMATOCRIT 39.6 % (36.0-48.0); HEMOGLOBIN 13.6 g/dL (12-16); IMMATURE GRANULOCYTES 0.3 % (0-5); MCH 33.3 pg (26.0-34.0); MCHC 34.3 g/dL (31.0-37.0); MCV 97.1 fL (80.0-100.0); MONOCYTES 10.8 % (2-11); NEUTROPHILS 68.4 % (40-80); PLATELET COUNT 200 10x3/uL (130-400); RBC 4.08 10x6/uL (4.00-5.40); RDW 14.4 % (11.5-14.5); WBC 9.1 10x3/uL (4.8-10.8)
[2017-09-27 05:12] LABS: CALC OSMOLALITY 273 mosm/kg (275-300); CALCIUM 8.4 mg/dL (8.5-10.1); CHLORIDE - SERUM 105 mmol/L (98-107); CREATININE - SERUM 0.7 mg/dL (0.6-1.3); GLUCOSE 117 mg/dL (74-106); SODIUM 137 mmol/L (136-145); UREA NITROGEN 9 mg/dL (7-18); eGFR NON AFRICAN AMERICAN 89 mL/min (90-120)
[2017-09-27 05:13] LABS: INR 1.03 (0.85-1.17); PROTIME 13.1 SECONDS (11.6-15.0)
[2017-09-27 05:17] LABS: POTASSIUM - SERUM 4.7 mmol/L (3.5-5.1)
[2017-09-27 09:52] VITALS: BP 119/64
[2017-09-27 14:54] VITALS: BP 92/62
[2017-09-27 18:48] VITALS: BP 125/45
[2017-09-28 01:35] VITALS: BP 96/54
[2017-09-28 04:00] VITALS: BP 108/57
[2017-09-28 09:30] VITALS: BP 99/56
[2017-09-28] MEDS ORDERED: HYDROCODONE-APA1 TAB PO (12:31)
[2017-09-28 13:27] VITALS: BP 104/66
== END 2017-09-28 16:33 | disposition home or self-care (01) | DRG 563 ==
LOC: D.ER 20:04 → D.MS 23:18
PROVIDERS: Family Medicine; Physician Assistant
DX: S42.201A Unspecified fracture of upper end of right humerus, initial encounter for closed fracture (principal); Z68.1 Body mass index [BMI] 19.9 or less, adult; W01.0XXA Fall on same level from slipping, tripping and stumbling without subsequent striking against object, initial encounter; M85.821 Other specified disorders of bone density and structure, right upper arm; I25.10 Atherosclerotic heart disease of native coronary artery without angina pectoris; F25.9 Schizoaffective disorder, unspecified; J44.9 Chronic obstructive pulmonary disease, unspecified; I10 Essential (primary) hypertension; I48.0 Paroxysmal atrial fibrillation; K21.9 Gastro-esophageal reflux disease without esophagitis; R63.4 Abnormal weight loss

== ENCOUNTER → 2018-04-13 22:13 | Outpatient (CLI) | payer MEDICARE ==
[2017-09-27 01:23] VITALS: BMI 17.4
[~2018-04-13 22:13] MED LIST changes: +BENADRYL50 MG PO; +HYDROCODONE-APA1 TAB PO
== END | disposition home or self-care (01) ==
LOC: D.MAMMO 15:45
DX: Z12.31 Encounter for screening mammogram for malignant neoplasm of breast (principal)

== ENCOUNTER → 2018-11-08 09:28 | Outpatient (CLI) | payer MEDICARE ==
[2017-09-27 01:23] VITALS: BMI 17.4
--- NOTE | 2018-11-14 18:38 | EC ---
PATIENT:MAGGI CRISTINA DATE OF SERVICE: 11/08/18 SEX: F MEDICAL RECORD: [id number] DATE OF : 52 LOCATION:[facility] AGE OF PATIENT: 68 ADMISSION DATE: 11/08/18 REFERRING PHYSICIAN: INTERPRETING PHYSICIAN: HESHAM YOUSSEF MD ECHOCARDIOGRAM REPORT ECHO CHARGES 4 ECHO COMPLETE Date: 11/08/18 CLINICAL DIAGNOSIS: MR H/O A-FIB/HTN ECHOCARDIOGRAPHIC MEASUREMENTS (adult normal given) AC root (d.<3.7cm) 3.3 cm LV Septum d (<1.2 cm> 0.9 cm Valve Excursion 2.1 cm LV Septum (systole) 1.7 cm Left Atria (s.<4.0cm> 3.6 cm LVPW d(<1.2cm) 1.2 cm RV (d.<2.3cm) 2.0 cm LVPW (sytole) 1.3 cm LV diastole(<5.6CM) 4.3 cm MV E-F(>70mm/sec) cm LV systole 2.4 cm LVOT Diameter 1.9 cm MV exc.(>10mm) cm Est.ejection fraction (50-75%) % DOPPLER: LVIT cm/sec A 47.0 cm/sec E 101 cm/sec LA cm/sec RVSP 22.3 mmHg LVOT 137 cm/sec AOP1/2T m/s Asc. Ao 152 cm/sec RVOT 64.0 cm/sec RA cm/sec PA 82.0 cm/sec AV Gradient Peak 9.2 mmHg AV Mean 4.2 mmHg AV Area 2.7 cm MV Gradient Peak 5.2 mmHg MV Mean 1.2 mmHg MV Area cm COMMENTS: OP - HC Aerospace Technician: Lindsey LANTIGUA KAYY Statistician Applied: 1 Dr. Youssef TAPE# PACS Pericardial Effusion N DATE OF SERVICE: 11/08/2018 FINDINGS: 1. Left ventricular chamber size is within normal limits. Left ventricular systolic function is normal. Overall ejection fraction is estimated at 60%. 2. Left atrium, right atrium, and right ventricular chamber sizes are within normal limit. 3. Valvular structures: Aortic valve demonstrates sclerosis, but no significant aortic stenosis. The remaining valvular structures have normal structure and motion. ECHOCARDIOGRAM REPORT [id number] MAGGI CRISTINA 4. Doppler interrogation reveals mild mitral regurgitation and mild tricuspid regurgitation. No other valvular insufficiency or stenosis. Pulmonary systolic pressure is normal, estimated at 22 mmHg. 5. No evidence of pericardial effusion or left ventricular thrombus. TRANSINT:[id number] Voice Confirmation ID: [id number] DOCUMENT ID: [id number] HESHAM YOUSSEF MD at 1838 CC: [id number] DICTATION DATE: 11/08/18 1608 RECORD FILING CLERK: 11/08/18 1706 [facility] CLI 11/08/18 [place] [id number] [place] [id number]
== END | disposition home or self-care (01) ==
LOC: D.HCCARDIO 09:28
PROVIDERS: ATTEND Internal Medicine Interventional Cardiology
DX: I34.0 Nonrheumatic mitral (valve) insufficiency (principal)

== ENCOUNTER → 2019-02-01 07:17 | Outpatient (CLI) | payer MEDICARE ==
[2017-09-27 01:23] VITALS: BMI 17.4
== END | disposition home or self-care (01) ==
LOC: D.RT 07:17
PROVIDERS: ATTEND Internal Medicine Pulmonary Disease
DX: J44.9 Chronic obstructive pulmonary disease, unspecified (principal)

== ENCOUNTER → 2019-02-02 12:22 | Outpatient (CLI) | payer MEDICARE ==
[2017-09-27 01:23] VITALS: BMI 17.4
== END | disposition home or self-care (01) ==
LOC: D.RAD 10:45
PROVIDERS: ATTEND Internal Medicine Pulmonary Disease
DX: J44.9 Chronic obstructive pulmonary disease, unspecified (principal)

== ENCOUNTER → 2019-04-12 09:14 | Outpatient (CLI) | payer MEDICARE ==
[2017-09-27 01:23] VITALS: BMI 17.4
--- NOTE | 2019-04-13 10:40 | ST ---
PATIENT:MAGGI CRISTINA MEDICAL RECORD: [id number] SEX: F LOCATION:[facility] ORDER #: ADMISSION DATE: 04/12/19 AGE OF PATIENT: 69 REFERRING PHYSICIAN: INTERPRETING PHYSICIAN: HESHAM QUEVEDO MD DATE OF SERVICE: 04/12/2019 Nuclear Stress Test INDICATIONS: Angina, hypertension, smoking. She was exercised on standard Lexiscan protocol with 33 mCi of sestamibi injected at peak stress, 11 mCi were used previously for rest images. FINDINGS: Gated SPECT reveals a decreased ejection fraction at 42% with good wall motion and thickening and brightening throughout all segments. SPECT Imaging: Cardiolite was used as myocardial perfusion agent. There is reversibility anteriorly, this includes the basal, mid, apical anterior segments. The degree of reversibility is mild. The amount of myocardium involved is mild to moderate. OVERALL IMPRESSION: 1. This is an intermediate risk abnormal nuclear stress test, reversible changes anteriorly. 2. Gated SPECT reveals a decreased ejection fraction of 42%. In this patient with ongoing symptomatology, the current scan does suggest the presence of hemodynamically significant coronary artery disease. TRANSINT:[id number] Voice Confirmation ID: [id number] DOCUMENT ID: [id number] HESHAM QUEVEDO MD at 1040 CC: JOCE JONES MD [id number] DICTATION DATE: 04/12/19 1701 PRIVACY ANALYST: 04/13/19 0534 [facility] CLI 04/12/19 [facility] [address] [place] [address]
== END | disposition home or self-care (01) ==
LOC: D.HCCARDIO 09:14
PROVIDERS: ATTEND Internal Medicine Interventional Cardiology
DX: R07.9 Chest pain, unspecified (principal)

== ENCOUNTER 2019-04-28 06:52 | Outpatient (CLI) | payer MEDICARE ==
[~2019-04-28] VITALS: Ht 172.7 cm; Wt 55.9 kg
--- NOTE | ~2019-04-28 | HEMODYNAMI ---
PATIENT:MAGGI CRISTINA MEDICAL RECORD: [id number] : 52 LOCATION:D.CAT ADMISSION DATE: 04/28/19 Generatedon:04/28/201910:29 Patient name: MAGGI CRISTINA Patient #: [id number] SSN: : Date of study: 04/28/2019 Page: Of Hemodynamic Procedure Report Patient Data Patient Demographics Procedure consent was obtained First Name: MAGGI Gender: Female Last Name: JONNIE : 1950 Middle Initial: L Age: 69 year(s) Patient #: [id number] Race: Additional ID: [id number] Contact details Address: [address] [place] [address] rd State: [place] City: [place] Zip code: [address] Past Medical History Performed procedures and imaging results Date Procedure Procedure Results Comments Stress testing Positive->Intermediate with SPECT MPI risk Allergies: No known allergies Admission Admission Data Admission Date: 04/28/2019 Admission Time: 6:52 Arrival Date: 04/28/2019 Arrival Time: 0:00 Height (in.): 67.72 BSA: 1.66 (m2) Height (cm.): 172 BMI: 18.93 (kg/m2) Weight (lbs.): 123.46 Weight (kg.): 56 Lab Results Lab Result Date: 04/28/2019 Lab Result Time: 0:00 Biochemistry Name Units Result Min Max BUN mg/dl 9 --(*---)-- 7 18 Creatinine mg/dl 0.6 --(*---)-- 0.6 1.3 eGFR ml/min 90 --(*---)-- 90 120 NONAFRICAN CBC Name Units Result Min Max Hematocrit % 41.7 -*(----)-- 42 54 Hemoglobin g/dl 13.9 --(*---)-- 13.5 17.5 Procedure Procedure Types Cath Procedure Diagnostic Procedure LHC LHC w/Coronaries Procedure Description Procedure Date Procedure Date: 04/28/2019 Procedure Start Time: 10:18 Procedure End Time: 10:27 Procedure Staff Name Function Martinez Youssef MD Performing Physician Hortencia Craig RT Monitor Irene Paniagua RT Scrub Ynes Burton RN Nurse Tabitha Bingham RT Monitor Procedure Data Cath Procedure Fluoroscopy Diagnostic fluoroscopy Total fluoroscopy Time: 1.5 time: 1.5 min min Diagnostic fluoroscopy Total fluoroscopy dose: 182 dose: 182 mGy mGy Contrast Material Contrast Material Type Amount (ml) Isovue 370 52 Entry Location Entry Primary Successful Side Size Upsize Upsize Entry Closure Succes sful Closure Location (Fr) 1 (Fr) 2 (Fr) Remarks Device Remarks Femoral Right 5 Fr Exoseal artery Estimated blood loss: 5 ml Diagnostic catheters Device Type Used For End Catheter Placement MULTIPACK Pigtail 5 Fr Procedure catheter MULTIPACK JL 4.0 5Fr Procedure catheter MULTIPACK 3DRC 5Fr Procedure catheter Procedure Complications No complications Procedure Medications Medication Administration Route Dosage Oxygen etCO2 Nasal cannula 2 l/min Lidocaine 2% added to field 20 Heparin Flush Bag added to field 2 bags (1000units/500ml NS) 0.9% NaCl I.V. 100 ml/hr Versed I.V. 1 mg Versed I.V. 1 mg Fentanyl I.V. 50 mcg Fentanyl I.V. 50 mcg Hemodynamics Rest BSA: 1.66 (m2) HGB: 13.9 (g/dl) O2 Consumption: Estimated: 179.46 (ml/min) O2 Co nsumption indexed: Estimated:108.11 (ml/min/m) Heart Rate: 111 (bpm) Snapshots Pre Cath Intra NCS Post Cath Vital Signs Time Heart Resp SPO2 etCO2 NIBP Rhythm Pain Sedation Rate (ipm) (%) (mmHg) (mmHg) Status Level (bpm) 9:47:43 84 23 99 21.8 107/73(89) NSR 0 (11) 10(A) , No pain 9:51:45 91 19 94 27.9 104/71(81) NSR 0 (11) 10(A) , No pain 9:55:46 88 13 97 39.1 106/66(82) NSR 0 (11) 10(A) , No pain 9:59:48 90 15 97 39.9 104/69(77) NSR 0 (11) 10(A) , No pain 10:03:50 90 15 96 38.5 104/67(79) NSR 0 (11) 10(A) , No pain 10:07:53 88 15 96 41.4 103/63(80) NSR 0 (11) 10(A) , No pain 10:11:55 93 15 93 38.4 102/68(79) NSR 0 (11) 10(A) , No pain 10:15:57 98 17 94 36.2 107/63(85) NSR 0 (11) 9(A) , No pain 10:20:03 87 15 95 37.7 98/57(73) NSR 0 (11) 9(A) , No pain 10:24:04 82 12 94 24.1 96/64(77) NSR 0 (11) 10(A) , No pain Medications Time Medication Route Dose Verified Delivered Reason Notes Eff ectiveness by by 9:46:10 Oxygen etCO2 2 Martinez Keaganie used for Nasal l/min Domonique Burton RN procedure cannula 9:46:17 Lidocaine 2% added 20ml Martinez Martinez for local to vial Domonique Youssef MD anesthetic field 9:46:23 Heparin Flush added 2 Martinez Martinez used for Bag to bags Domonique Youssef MD procedure (1000units/500ml field NS) 9:46:35 0.9% NaCl I.V. 100 Martinez Buffie Per ml/hr Domonique Burton RN physician 10:14:07 Versed I.V. 1 mg Martinez Quick for Domonique Burton RN sedation 10:14:15 Fentanyl I.V. 50 Martinez Quick for mcg Domonique Burton RN sedation 10:19:19 Versed I.V. 1 mg Martinez Quick for Domonique Burton RN sedation 10:19:23 Fentanyl I.V. 50 Martinez Quick for mcg Domonique Burton RN sedation Procedure Log Time Note 9:25:30 Ynes Burton RN sent for patient. Start room use. 9:26:30 Informed consent obtained and on chart 9:27:13 Procedure Status Elective Heart Cath (OP). 9:27:14 Time tracking: Regular hours (M-F 7:00 - 5:00) 9:27:18 Plan of Care:Hemodynamics will remain stable., Cardiac rhythm will remain stable., Comfort level will be maintained., Respiratory function will remain adequate., Patient/ family verbilizes understanding of procedure., Procedure tolerated without complication., Recovers from procedure without complications.. 9:28:49 H&P Date Dictated: 04/10/2019 Within 30 days and on chart., H&P Addendum completed by physician on day of procedure. (MUST COMPLETE FOR ALL OUTPATIENTS). 9:28:55 Patient allergic to No known allergies 9:32:10 Patient Weight : 123.46 lbs 9:32:13 Patient Height : 67.72 inches 9:32:17 Arrival Date: 04/28/2019 12:00:00 AM 9:32:58 Lab Result : Hematocrit 41.7 % 9:32:58 Lab Result : Creatinine 0.6 mg/dl 9:32:58 Lab Result : Hemoglobin 13.9 g/dl 9::58 Lab Result : BUN 9 mg/dl 9:32:58 Lab Result : eGFR NONAFRICAN 90 ml/min 9:34:11 Stress Test: yes; abnormal ANTERIOR 9:37:00 Patient received from Pre/Post Procedure Room to CCL 1 Alert and oriented. Tansferred to table in Supine position. 9:37:01 Warm blankets applied, and pepe hugger turned on for patient comfort. 9:37:02 Correct patient and procedure confirmed by team. 9:37:02 ECG and BP/O2 sat monitors applied to patient. 9:37:12 Pre-procedure instructions explained to patient. 9:37:13 Pre-op teaching completed and patient verbalized understanding. 9:37:26 Family in patients room. 9:37:27 Patient NPO since Midnight. 9:37:29 Is the patient allergic to Iodine/contrast media? No. 9:37:31 Is patient on blood thinner?No 9:37:38 Patient diabetic? No. 9:37:41 Previous problem with sedation/anesthesia? No ? 9:37:44 Snore? Yes 9:37:45 Sleep apnea? No 9:37:46 Deviated septum? No 9:37:47 Opens mouth fully? Yes 9:37:47 Sticks out tongue? Yes 9:37:50 Airway obstruction? Yes COPD 9:37:53 Dentures? No ? 9:37:55 Pre procedure: right dorsailis pedis pulse 1+ Palpable, but thready & weak; easily obliterated 9:41:54 Patient pain scale 0/10 ?. 9:41:58 IV patent on arrival in left hand with 0.9% NaCl at [facility]. 9:42:00 Lab results completed and on chart. 9:43:57 Risk of Mortality: .1 9:44:00 Risk of blood transfusion: 1.4 9:44:03 Risk of JEANA: 1.1 9:44:06 LAST PROCEDURE IN 2014, UNABLE TO GAIN RADIAL ACCESS. WILL GO GROIN TODAY. 9:44:07 Right groin area was prepped with chlora-prep and draped in sterile fashion 9:44:08 Alarms reviewed by R. N. 9:44:08 Sharps counted by scrub and verified by R.N. 9:45:13 Use device set Femoral Dx 9:45:14 ACIST Syringe (43646) opened to sterile field. 9:45:15 Bag Decanter (2002S) opened to sterile field. 9:45:16 ACIST Hand Control (82371) opened to sterile field. 9:45:16 ACIST Manifold (68871) opened to sterile field. 9:45:17 Tegaderm 4 x 4 (1626W) opened to sterile field. 9:45:19 Medline Cath Pack ([id number]) opened to sterile field. 9:45:20 DIAGNOSTIC Multipack 5Fr catheter set ([id number]) opened to sterile field. 9:45:20 SHEATH 5FR Exira (DTU084) opened to sterile field. 9:45:21 EMERALD Guide Wire (070-773) opened to sterile field. 9:46:10 Oxygen 2 l/min etCO2 Nasal cannula was administered by Ynes Burton RN; used for procedure; Verbal order read back and verified. 9:46:17 Lidocaine 2% 20ml vial added to field was administered by Martinez Youssef MD; for local anesthetic; Verbal order read back and verified. 9:46:23 Heparin Flush Bag (1000units/500ml NS) 2 bags added to field was administered by Martinez Youssef MD; used for procedure; Verbal order read back and verified. 9:46:35 0.9% NaCl 100 ml/hr I.V. was administered by Ynes Burton RN; Per physician; Verbal order read back and verified. 9:46:38 Vital chart was started 9:48:02 Full Disclosure recording started 9:48:04 Baseline sample Acquired. 9:48:14 Rhythm: sinus rhythm 10:12:20 --------ALL STOP TIME OUT------ 10:12:20 Final Timeout: patient, procedure, and site verified with staff and physician. All members of the team are in agreement. 10:12:22 Right groin site verified by team. 10:12:25 Fire Safety Assessment: A--An alcohol-based skin anteseptic being used preoperatively., C--Open oxygen or nitrous oxide is being used., D--An ESU, laser, or fiber-optic light is being used. 10:12:30 Physical assessment completed. ASA score P 2 - A patient with mild systemic disease as per Martinez Youssef MD. 10:12:36 1) 90+ Normal kidney functon but urine findings or structural abnormalities or genetic trait point to kidney disease. 10:12:40 Maximum allowable contrast dose (3.7 X eGFR X 0.75)250 ml. 10:12:47 Sedation plan: IV Moderate Sedation Medication:Versed, Fentanyl 10:14:07 Versed 1 mg I.V. was administered by Ynes Burton RN; for sedation; Verbal order read back and verified. 10:14:15 Fentanyl 50 mcg I.V. was administered by Ynes Burton RN; for sedation; Verbal order read back and verified. 10:18:28 Procedure started. 10:18:54 Local anesthetic to right femoral artery with Lidocaine 2% by Martinez Youssef MD.INITIAL ACCESS ONLY 10:19:19 Versed 1 mg I.V. was administered by Ynes Burton RN; for sedation; Verbal order read back and verified. 10:19:23 Fentanyl 50 mcg I.V. was administered by Ynes Burton RN; for sedation; Verbal order read back and verified. 10:20:00 A 5 Fr sheath was inserted into the Right Femoral artery 10:20:43 A MULTIPACK Pigtail 5 Fr catheter was advanced over the wire and used for Procedure. 10:20:58 LV gram done using BEAR 10:21:01 Injector settings: Ml/sec: 10, Volume: 20, 10:21:09 EF : 70 % 10:21:12 Catheter removed. 10:21:16 A MULTIPACK JL 4.0 5Fr catheter was advanced over the wire and used for Procedure. 10:22:03 LCA angiography performed. 10:23:07 Catheter removed. 10:23:17 A MULTIPACK 3DRC 5Fr catheter was advanced over the wire and used for Procedure. 10:23:51 RCA angiography performed. 10:24:03 Catheter removed. 10:24:07 EXOSEAL 5Fr (EX500) opened to sterile field. 10:24:17 Sheath removed intact; hemostasis achieved with Exoseal to the Right Femoral artery. 10:24:20 Procedure ended.(Physican Out) 10:24:36 Fluoroscopy time 01.50 minutes. 10:24:40 Flurop Dose total: 182 10:24:40 Fluoroscopy dose: 182 mGy 10:24:46 Dose Area Product 9746 mGy/cm. 10:25:06 Contrast amount:Isovue 370 52ml. 10:25:10 Maximum allowable dose exceeded? No. 10:25:11 Sharps counted by scrub and verified by R.N. 10:25:16 Post-op/insertion site Right Femoral artery dressed using a 4 x 4 and Tegaderm. 10:25:22 Post right femoral artery:stable, soft, clean and dry 10:25:24 Post Procedure Pulses reassessed and unchanged 10:25:29 Post procedure: right dorsailis pedis pulse 2+ Normal; easily identifiable; not easily obliterated. 10:25:51 Post-procedure physical assessment completed. ASA score P 2 - A patient with mild systemic disease as per Martinez Youssef MD. 10:25:54 Post procedure rhythm: unchanged. 10:25:57 Estimated blood loss: 5 ml 10:25:59 Post procedure instruction explained to patient.Patient verbalizes understanding. 10:26:00 Patient needs reinforcement of post procedure teaching. 10:26:47 Procedure and supply charges have been captured, reviewed, submitted and are correct. 10:26:52 Procedure Complication : No complications 10:26:56 [facility] Findings: mild to moderate CAD (<70%) 10:26:59 Operative report dictated upon procedure completion. 10:27:00 See physician's report for complete and final results. 10:27:06 Report given to Pre/Post Procedure Room. 10:27:09 Patient transfered to Pre/Post Procedure Room with Stretcher. 10:27:15 Vital chart was stopped 10:27:19 Procedure ended. 10:27:19 Full Disclosure recording stopped 10:29:02 End room use (Document Last) 10:29:16 End room use (Document Last) 10:29:35 End room use (Document Last) Device Usage Item Name Manufacture Quantity Catalog Hospital Part Current Minimal L ot# / Number Charge Number Stock Stock Serial# Code ACIST Acist 1 77168 545914 814571 063275 20 Syringe Medical (64040) Systems Inc Bag Microtek 1 2001S 976574 35498 425422 5 Decanter Medical Inc. (2001S) ACIST Hand Acist 1 62183 651402 113195 414021 5 Control Medical (59274) Systems Inc ACIST Acist 1 13057 378593 821136 802731 5 Manifold Medical (76256) Systems Inc Tegaderm 4 3M 1 1626W 011306 160187 017927 5 x 4 (1626W) Medline Medline 1 [id number] 685735 82713 090721 5 Cath Pack ([id number]) DIAGNOSTIC Cardinal 1 RF2193 165247 95862 272928 30 Multipack Health 5Fr catheter set (CK8795) SHEATH 5FR Terumo 1 YTV061 970363 744326 937520 5 Exira (XCQ761) EMERALD Cardinal 1 502-455 663658 651358 011092 5 Guide Wire Health (502-455) MULTIPACK Cardinal 1 162207 5 Pigtail 5 Health Fr catheter MULTIPACK Cardinal 1 791733 5 JL 4.0 5Fr Health catheter MULTIPACK Cardinal 1 296380 5 3DRC 5Fr Health catheter EXOSEAL 5Fr Cardinal 1 EX500 221507 000266 849583 10 (EX500) Health Signature Audit [place] Stage Time Signature Unsigned Intra-Procedure 04/28/2019 Hortencia Craig 10:29:16 AM RT(R) Intra-Procedure 04/28/2019 Ynes Burton RN 10:29:35 AM Intra-Procedure 04/28/2019 Martinez Youssef 10:29:54 AM [address] [place] [address]
--- NOTE | ~2019-04-28 | OP ---
PATIENT NAME: MAGGI CRISTINA MEDICAL RECORD: [id number] :52 LOCATION:D.CAT ADMISSION DATE: SURGEON: HESHAM QUEVEDO MD DATE OF OPERATION: 04/28/2019 DATE OF SERVICE: 04/28/2019 PROCEDURES: 1. Left heart catheterization. 2. Selective coronary angiography. 3. Left ventriculogram. INDICATION: Chest pain compatible with angina, abnormal nuclear stress test. PROCEDURE IN DETAIL: After informed consent was obtained and after a detailed explanation of risks, benefits as well as alternative therapies, the patient elected to proceed with angiogram and angioplasty. The right femoral area was prepped and draped in normal sterile fashion. Right femoral artery was cannulated via modified Seldinger technique with placement of 5-Citizen Of [place] sheath. All catheters exchanged through this sheath. FINDINGS: Left ventriculogram was performed in standard 30-degree BEAR view, reveals good cardiac wall motion throughout all segments. Overall ejection fraction estimated at 60%. SELECTIVE CORONARY ANGIOGRAPHY: Left main, left anterior descending, left circumflex, right coronary artery are all smooth-walled vessels with no angiographic evidence of coronary artery disease. OVERALL IMPRESSION: 1. No angiographic evidence of coronary artery disease. 2. Normal left heart pressures. 3. Normal left ventricular systolic function. Chest pain is noncardiac in etiology. No further cardiac workup needs to be ascertained. TRANSINT:[id number] Voice Confirmation ID: [id number] DOCUMENT ID: [id number] HESHAM QUEVEDO MD CC: [id number] DICTATION DATE: 04/28/19 1029 DIRECTOR INSURANCE: 04/28/19 1526 DEP CLI 04/28/19 [place] [address] [place] [address]
[2019-04-28] MEDS ORDERED: BUPROPION HCL75 MG PO (07:17)
[2019-04-28] MEDS ORDERED: LISINOPRIL10 MG PO (07:17)
[2019-04-28] MEDS ORDERED: ALENDRONAT70 MG/75 M PO (07:19)
[2019-04-28] MEDS ORDERED: ATROVENT 0.02%2.5 ML UPD (07:20)
[2019-04-28 07:35] VITALS: BP 129/80; Ht 172.7 cm; Wt 55.9 kg
[2019-04-28 07:43] LABS: BASOPHILS 0.9 % (0-2); EOSINOPHILS 4.5 % (0-7); HEMATOCRIT 41.7 % (36.0-48.0); HEMOGLOBIN 13.9 g/dL (12-16); IMMATURE GRANULOCYTES 0.2 % (0-5); LYMPHOCYTES 30.8 % (15-50); MCH 32.1 pg (26.0-34.0); MCHC 33.3 g/dL (31.0-37.0); MCV 96.3 fL (80.0-100.0); MEAN PLATELET VOLUME 10.2 fL (7.4-10.4); NEUTROPHILS 51.6 % (40-80); RBC 4.33 10x6/uL (4.00-5.40); RDW 15.1 % (11.5-14.5); WBC 5.7 10x3/uL (4.8-10.8)
[2019-04-28 07:51] LABS: PLATELET COUNT 291 10x3/uL (130-400)
[2019-04-28 07:57] LABS: CALC OSMOLALITY 273 mosm/kg (275-300); CALCIUM 8.8 mg/dL (8.5-10.1); CARBON DIOXIDE 31.5 mmol/L (21.0-32.0); CHLORIDE - SERUM 100 mmol/L (98-107); CREATININE - SERUM 0.6 mg/dL (0.6-1.3); GLUCOSE 88 mg/dL (74-106); SODIUM 138 mmol/L (136-145); UREA NITROGEN 9 mg/dL (7-18); eGFR NON AFRICAN AMERICAN > 90 mL/min (90-120)
--- NOTE | 2019-04-28 10:40 | NUR ---
PT ARRIVED BY STRETCHER. PLACED ON MONITORS. ASSESSMENT COMPLETED. VSS. RIGHT GROIN DRESSING C/D/I. NO S/S OF HEMATOMA NOTED.
--- NOTE | 2019-04-28 10:55 | NUR ---
RIGHT GROIN DRESSING C/D/I. NO S/S OF HEMATOMA NOTED. CALL LIGHT WITHIN REACH. VSS. RESTING COMFORTABLY. RIGHT PEDAL PULSE PALPABLE.
--- NOTE | 2019-04-28 11:24 | NUR ---
PT RESTING COMFORTABLY. VSS. RIGHT GROIN DRESSING C/D/I. NO S/S OF HEMATOMA NOTED. CALL LIGHT WITHIN REACH. NO NEEDS AT THIS TIME. PT'S HEAD OF BED INC TO 30 DEGREES SLOWLY. TOLERATING WELL.
--- NOTE | 2019-04-28 11:36 | NUR ---
DR. QUEVEDO ROUNDED AND SPOKE WITH PT AND PT'S FAMILY. THEY VOICED UNDERSTANDING.
[2019-04-28] MEDS ORDERED: TOPROL XL25 MG PO (11:39)
--- NOTE | 2019-04-28 12:00 | NUR ---
PT SITTING UP EATING. RIGHT GROIN DRESSING C/D/I. NO S/S OF HEMATOMA NOTED. VSS. CALL LIGHT WITHIN REACH. DENIES PAIN/NAUSEA AT THIS TIME.
--- NOTE | 2019-04-28 12:41 | NUR ---
RIGHT GROIN DRESSING C/D/I. NO S/S OF HEMATOMA NOTED. PIV D/C'D WITH CATH TIP INTACT. TOLERATED WELL. PT INSTRUCTED TO GET UP AND DRESSED AT THIS TIME. NO ASSISTANCE NEEDED. CALL LIGHT WITHIN REACH.
--- NOTE | 2019-04-28 12:49 | NUR ---
PT AMBULATED TO RESTROOM. VOIDED WITHOUT DIFFICULTY.
--- NOTE | 2019-04-28 12:50 | NUR ---
DISCUSSED DISCHARGE INSTRUCTIONS WITH PT. SHE VOICED UNDERSTANDING. RIGHT GROIN DRESSING C/D/I. NO S/S OF HEMATOMA NOTED.
--- NOTE | 2019-04-28 13:00 | NUR ---
PT TAKEN OUT TO VEHICLE BY WHEELCHAIR. NO S/S OF DISTRESS NOTED. ALL BELONGINGS AND PAPERWORK IN HAND.
== END 2019-04-28 13:00 | disposition home or self-care (01) ==
LOC: D.CATH 06:52
PROVIDERS: ATTEND Internal Medicine Interventional Cardiology
DX: I20.9 Angina pectoris, unspecified (principal); R94.39 Abnormal result of other cardiovascular function study

== ENCOUNTER → 2019-05-17 11:02 | Outpatient (CLI) | payer MEDICARE ==
[2019-04-28 07:35] VITALS: BMI 18.7
[~2019-05-17 11:02] MED LIST changes: +ALENDRONAT70 MG/75 M PO; +ATROVENT 0.02%2.5 ML UPD; +BUPROPION HCL75 MG PO; +LISINOPRIL10 MG PO
== END | disposition home or self-care (01) ==
LOC: D.RT 11:02
PROVIDERS: ATTEND Internal Medicine Pulmonary Disease
DX: J44.9 Chronic obstructive pulmonary disease, unspecified (principal)

== ENCOUNTER 2019-06-27 12:14 | Observation (INO) | payer MEDICARE ==
[~2019-06-27] VITALS: Ht 172.7 cm; Wt 60.6 kg
[2019-06-27 13:13] LABS: BASOPHILS 0.3 % (0-2); EOSINOPHILS 0.3 % (0-7); HEMATOCRIT 41.2 % (36.0-48.0); HEMOGLOBIN 14.1 g/dL (12-16); IMMATURE GRANULOCYTES 0.2 % (0-5); LYMPHOCYTES 15.2 % (15-50); MCH 32.7 pg (26.0-34.0); MCHC 34.2 g/dL (31.0-37.0); MCV 95.6 fL (80.0-100.0); MEAN PLATELET VOLUME 9.8 fL (7.4-10.4); MONOCYTES 4.8 % (2-11); NEUTROPHILS 79.2 % (40-80); PLATELET COUNT 284 10x3/uL (130-400); RBC 4.31 10x6/uL (4.00-5.40); RDW 14.7 % (11.5-14.5)
[2019-06-27 13:24] LABS: CALC OSMOLALITY 272 mosm/kg (275-300); CALCIUM 8.9 mg/dL (8.5-10.1); CARBON DIOXIDE 28.4 mmol/L (21.0-32.0); CHLORIDE - SERUM 101 mmol/L (98-107); CREATININE - SERUM 0.7 mg/dL (0.6-1.3); GLUCOSE 104 mg/dL (74-106); POTASSIUM - SERUM 4.2 mmol/L (3.5-5.1); SODIUM 136 mmol/L (136-145); UREA NITROGEN 14 mg/dL (7-18); eGFR NON AFRICAN AMERICAN 88 mL/min (90-120)
[2019-06-27 13:25] LABS: APTT 29.9 SECONDS (22.8-39.4); INR 0.99 (0.85-1.17)
[2019-06-27 13:42] LABS: ALBUMIN 3.4 g/dL (3.4-5.0); ALKALINE PHOSPHATASE 56 U/L (30-120); ALT (SGPT) 11 U/L (10-68); BILIRUBIN - TOTAL 0.22 mg/dL (0.2-1.3); CKMB 0.7 U/L (0.0-3.6); CREATINE KINASE 30 UL (21-215); TROPONIN-I < 0.017 ng/mL (0.000-0.060)
[2019-06-27] MEDS ORDERED: METOPROLOL TART25 MG PO ×2 (13:45)
[2019-06-27] MEDS ORDERED: AMOXICILLIN875 MG PO (13:46)
[2019-06-27] MEDS ORDERED: WELLBUTRIN SR150 MG PO (13:47)
[2019-06-27] MEDS ORDERED: ZYPREXA20 MG PO (13:48)
[2019-06-27] MEDS ORDERED: PREDNISONE20 MG PO (13:50)
[2019-06-27] MEDS ORDERED: PEPCID40 MG PO (13:53)
[2019-06-27 14:44] VITALS: BP 130/85
[2019-06-27 18:23] VITALS: BP 114/67; Ht 172.7 cm; Wt 60.6 kg
[2019-06-27 19:08] LABS: THYROID STIMULATING HORMONE 0.63 uIU/mL (0.36-3.74)
--- NOTE | 2019-06-27 19:32 | NUR ---
RECEIVED BEDSIDE REPORT. PATIENT IS ALERT AND ORIENTED, RESTING COMFORTABLY IN BED. RESPIRATIONS ARE EVEN AND UNLABORED. NO S/S OF DISTRESS. NO C/O PAIN. CALL LIGHT WITHIN REACH. WILL CPOC.
[2019-06-27 19:36] LABS: CREATINE KINASE 23 UL (21-215)
[2019-06-27 19:37] LABS: CKMB 1.9 U/L (0.0-3.6); TROPONIN-I < 0.017 ng/mL (0.000-0.060)
[2019-06-27 21:03] VITALS: BP 116/67
[2019-06-27 22:20] LABS: BILIRUBIN NEGATIVE (NEGATIVE); GLUCOSE NEGATIVE (NEGATIVE); KETONE NEGATIVE (NEGATIVE); NITRITE NEGATIVE (NEGATIVE); UROBILINOGEN NORMAL (NORMAL)
--- NOTE | 2019-06-27 23:52 | NUR ---
PATIENT RESTING COMFORTABLY IN BED. RESPIRATIONS ARE EVEN AND UNLABORED. NO S/S OF DISTRESS. CALL LIGHT WITHIN REACH. WILL CPOC.
[2019-06-28] VITALS (7 sets, daily range): BP systolic 126–150; BP diastolic 76–81
[2019-06-28 01:36] LABS: CKMB 0.7 U/L (0.0-3.6); CREATINE KINASE 21 UL (21-215)
[2019-06-28 01:41] LABS: TROPONIN-I < 0.017 ng/mL (0.000-0.060)
[2019-06-28 07:08] LABS: ALBUMIN 2.9 g/dL (3.4-5.0); ALKALINE PHOSPHATASE 48 U/L (30-120); ALT (SGPT) 12 U/L (10-68); BILIRUBIN - TOTAL 0.18 mg/dL (0.2-1.3); CALC OSMOLALITY 271 mosm/kg (275-300); CALCIUM 8.5 mg/dL (8.5-10.1); CARBON DIOXIDE 27.8 mmol/L (21.0-32.0); CHLORIDE - SERUM 102 mmol/L (98-107); CKMB 0.5 U/L (0.0-3.6); CREATINE KINASE 17 UL (21-215); CREATININE - SERUM 0.6 mg/dL (0.6-1.3); GLUCOSE 81 mg/dL (74-106); MAGNESIUM - SERUM 1.8 mg/dL (1.8-2.4); POTASSIUM - SERUM 4.2 mmol/L (3.5-5.1); PROTEIN - SERUM 6.1 g/dL (6.4-8.2); SODIUM 136 mmol/L (136-145); UREA NITROGEN 14 mg/dL (7-18); eGFR NON AFRICAN AMERICAN > 90 mL/min (90-120)
[2019-06-28 07:11] LABS: TROPONIN-I < 0.017 ng/mL (0.000-0.060)
[2019-06-28 07:26] LABS: BASOPHILS 0.8 % (0-2); EOSINOPHILS 3.6 % (0-7); HEMATOCRIT 37.7 % (36.0-48.0); HEMOGLOBIN 12.7 g/dL (12-16); IMMATURE GRANULOCYTES 0.3 % (0-5); LYMPHOCYTES 48.1 % (15-50); MCH 31.9 pg (26.0-34.0); MCHC 33.7 g/dL (31.0-37.0); MCV 94.7 fL (80.0-100.0); MEAN PLATELET VOLUME 10.2 fL (7.4-10.4); MONOCYTES 11.4 % (2-11); NEUTROPHILS 35.8 % (40-80); PLATELET COUNT 284 10x3/uL (130-400); RBC 3.98 10x6/uL (4.00-5.40); RDW 14.9 % (11.5-14.5)
[2019-06-28] MEDS ORDERED: TOPROL XL25 MG PO (10:14)
--- NOTE | 2019-06-28 11:46 | NUR ---
ORTHOSTATIC B/P: LYING; 133/79 64, SITTING; 143/80 66, AND STANDING; 138/81 71.
--- NOTE | 2019-06-28 13:11 | CN ---
PATIENT NAME:MAGGI CRISTINA MEDICAL RECORD: [id number] : 52 LOCATION:DLaina D.2118 ADMIT DATE: 06/27/19 ACCOUNT: [id number] CONSULTING PHYSICIAN: VALERIE CAPONE MD REFERRING PHYSICIAN: GARRETT MCNEAL MD DATE OF CONSULTATION: 06/28/2019 HISTORY OF PRESENT ILLNESS: A 69-year-old female with history of SVT, has history of hypertension, was evaluated last couple of months with chest pain and SVT found to have normal coronary anatomy, had an episode of SVT yesterday, she reports intermittent dizziness. Some of this is a fairly classic orthostasis, wakes up in the morning, gets out of bed and becomes quite dyspneic, will watch a movie, other times she feels nervous in the chest, certainly suspicious for recurrent SVT. We are asked to see her concerning her cardiovascular status. PAST MEDICAL HISTORY: Includes: 1. History of hypertension. 2. SVT. 3. Obstructive pulmonary disease. 4. Gastroesophageal reflux disease. 5. Osteoporosis. MEDICATIONS: Includes; 1. Fosamax every week. 2. Pepcid 40 mg p.o. daily. 3. Wellbutrin 150 b.i.d. 4. Zyprexa 10 mg p.o. b.i.d. 5. Depakote 50 mg at bedtime. 6. Metoprolol 25 at bedtime. 7. Lisinopril 10 mg p.o. daily. 8. Atrovent 0.5 every 4 hours. SOCIAL HISTORY: Smokes less than a pack a day. Has been more active as of late and has gained some weight back from previous illness. No set exercise program. REVIEW OF SYSTEMS: The patient reports easy bruising but reports no swollen glands. The patient reports no fever, no night sweats, no significant weight gain, no significant weight loss. No significant exercise tolerance. The patient reports no dry eyes, no irritation, no vision change. Patient reports no difficulty hearing and no ear pain. Patient reports no frequent nose bleeds or nose and sinus problems. Patient reports on arm pain on exertion. No shortness of breath while lying down. No history of heart murmur. Patient reports no cough, no wheezing or coughing up blood. Patient reports no abdominal pain, no vomiting. Normal appetite. No diarrhea and not vomiting blood. No nausea and no constipation. Patient reports no incontinence. No difficulty urinating. No hematuria. No increased frequency. Patient reports no muscle aches. No weakness, no arthralgias, no back pain. No swelling of the extremities. Patient reports no abnormal mole, no jaundice, no rashes. Reports no loss of consciousness. No weakness and no numbness. No seizures, dizziness, or headaches. The patient reports no depression, no sleep disturbance, feeling safe in a relationship and no alcohol abuse. Patient reports on fatigue. Reports no runny nose or sinus pressure. No itching, no hives, and no frequent sneezing. PHYSICAL EXAMINATION: CONSULT REPORT [id number] MAGGI CRISTINAINE GENERAL: Pleasant female in no acute distress. VITAL SIGNS: Blood pressure 132/78, pulse 59 and regular. HEENT: Normocephalic, atraumatic. NECK: Questionable left carotid bruit. HEART: Regular. LUNGS: Slightly prolonged expiratory phase with very good air excursion. ABDOMEN: Soft, nontender. EXTREMITIES: Pulses 2+. No edema. IMPRESSION: Dizziness with orthostatic component. Given supraventricular tachycardia, we would avoid any further beta blockade. Given the rest symptomology, dyspnea may be a little intravascular volume deplete with elevated BUN and agree with gentle hydration. We will add digoxin at this point. If this is successful, I might taper off the metoprolol down the road. Given a questionable bruit, we will go ahead and check carotid Dopplers. TRANSINT:[id number] Voice Confirmation ID: [id number] DOCUMENT ID: [id number] VALERIE CAPONE MD at 1311 CC: [id number] DICTATION DATE: 06/28/19 0840 DAIRY ASSOCIATE: 06/28/19 1212 ADM IN [facility] [address] [place] [address]
--- NOTE | 2019-06-28 19:38 | NUR ---
RECEIVED BEDSIDE REPORT. PATIENT IS ALERT AND ORIENTED, RESTING COMFORTABLY IN BED. RESPIRATIONS ARE EVEN AND UNLABORED. NO S/S OF DISTRESS. NO C/O PAIN. NEEDS MET. CALL LIGHT WITHIN REACH. WILL CPOC.
--- NOTE | 2019-06-28 20:49 | NUR ---
PATIENT SHOWERED AND LINENS CHANGED.
[2019-06-29] VITALS: BP 121/59
[2019-06-29 04:00] VITALS: BP 109/65
[2019-06-29 06:37] LABS: BASOPHILS 0.8 % (0-2); EOSINOPHILS 5.2 % (0-7); HEMATOCRIT 42.1 % (36.0-48.0); HEMOGLOBIN 14.2 g/dL (12-16); IMMATURE GRANULOCYTES 0.2 % (0-5); LYMPHOCYTES 37.3 % (15-50); MCHC 33.7 g/dL (31.0-37.0); MCV 94.8 fL (80.0-100.0); MEAN PLATELET VOLUME 10.4 fL (7.4-10.4); MONOCYTES 11.4 % (2-11); NEUTROPHILS 45.1 % (40-80); PLATELET COUNT 318 10x3/uL (130-400); RBC 4.44 10x6/uL (4.00-5.40); RDW 14.6 % (11.5-14.5); WBC 9.7 10x3/uL (4.8-10.8)
[2019-06-29 06:56] LABS: CALC OSMOLALITY 263 mosm/kg (275-300); CALCIUM 8.9 mg/dL (8.5-10.1); CARBON DIOXIDE 30.7 mmol/L (21.0-32.0); CHLORIDE - SERUM 94 mmol/L (98-107); GLUCOSE 79 mg/dL (74-106); MAGNESIUM - SERUM 1.7 mg/dL (1.8-2.4); POTASSIUM - SERUM 4.4 mmol/L (3.5-5.1); SODIUM 131 mmol/L (136-145); UREA NITROGEN 17 mg/dL (7-18); eGFR NON AFRICAN AMERICAN 75 mL/min (90-120)
[2019-06-29 06:57] LABS: CREATININE - SERUM 0.8 mg/dL (0.6-1.3)
[2019-06-29 10:59] VITALS: BP 115/64
--- NOTE | 2019-06-29 12:55 | NUR ---
OK FOR DISCHARGE FROM DR QUEEVDO PER OPAL RIZVI APN WITH NEW MEDICATION OF LANOXIN ADDED.
[2019-06-29] MEDS ORDERED: LANOXIN125 MCG PO (12:57)
--- NOTE | 2019-06-29 16:48 | EC ---
PATIENT:MAGGI CRISTINA DATE OF SERVICE: 06/27/19 SEX: F MEDICAL RECORD: [id number] DATE OF : 52 LOCATION:D.M2 D.211 AGE OF PATIENT: 69 ADMISSION DATE: 06/27/19 REFERRING PHYSICIAN: INTERPRETING PHYSICIAN: HESHAM YOUSSEF MD ECHOCARDIOGRAM REPORT ECHO CHARGES 4 ECHO COMPLETE Date: 06/28/19 CLINICAL DIAGNOSIS: DIZZINESS ECHOCARDIOGRAPHIC MEASUREMENTS (adult normal given) AC root (d.<3.7cm) 3.1 cm LV Septum d (<1.2 cm> 1.5 cm Valve Excursion 2.2 cm LV Septum (systole) 1.9 cm Left Atria (s.<4.0cm> 2.7 cm LVPW d(<1.2cm) 0.9 cm RV (d.<2.3cm) 2.4 cm LVPW (sytole) 1.6 cm LV diastole(<5.6CM) 4.2 cm MV E-F(>70mm/sec) cm LV systole 2.0 cm LVOT Diameter 1.8 cm MV exc.(>10mm) cm Est.ejection fraction (50-75%) % DOPPLER: LVIT cm/sec A 84.0 cm/sec E 129 cm/sec LA cm/sec RVSP 17.0 mmHg LVOT 137 cm/sec AOP1/2T m/s Asc. Ao 140 cm/sec RVOT 78.0 cm/sec RA cm/sec PA 98.0 cm/sec AV Gradient Peak 7.9 mmHg AV Mean 4.1 mmHg AV Area 2.6 cm MV Gradient Peak 5.5 mmHg MV Mean 1.9 mmHg MV Area cm COMMENTS: Environmental Permitting Specialist: 1 RHINA BORGESOE Consumer Banker: 1 Dr. Youssef TAPE# PACS Pericardial Effusion N DATE OF SERVICE: FINDINGS: 1. Left ventricular chamber size is within normal limits. Left ventricular systolic function is normal at 60%. 2. Left atrium, right atrium, and right ventricular chamber sizes are within normal limits. 3. Valvular structures: Aortic valve is heavily calcified with aortic sclerosis, but no significant aortic stenosis exists. The remaining valvular structures have normal structure and motion. ECHOCARDIOGRAM REPORT [id number] MAGGI CRISTINA 4. Doppler interrogation reveals no significant valvular insufficiency or stenosis and pulmonary systolic pressure is normal, estimated at 17 mmHg. 5. No evidence of pericardial effusion or left ventricular thrombus. TRANSINT:[id number] Voice Confirmation ID: [id number] DOCUMENT ID: [id number] HESHAM YOUSSEF MD at 1648 CC: [id number] DICTATION DATE: 06/29/19 0745 CURTAIN FITTER: 06/29/19 0936 DIS IN 06/29/19 [id number] [place] [id number]
== END 2019-06-29 14:39 | disposition home or self-care (01) ==
LOC: D.ER 12:14 → D.M2 13:58 → OBSVTIME 16:11 → D.M2 06-29 14:39
PROVIDERS: Family Medicine; ADMIT Internal Medicine Nephrology; ATTEND Internal Medicine Nephrology
DX: R00.0 Tachycardia, unspecified (principal); J96.21 Acute and chronic respiratory failure with hypoxia; J44.1 Chronic obstructive pulmonary disease with (acute) exacerbation; I10 Essential (primary) hypertension; K21.9 Gastro-esophageal reflux disease without esophagitis; F32.9 Major depressive disorder, single episode, unspecified; F31.9 Bipolar disorder, unspecified; F17.203 Nicotine dependence unspecified, with withdrawal; M81.0 Age-related osteoporosis without current pathological fracture

== ENCOUNTER 2019-09-28 09:00 | Outpatient (CLI) | payer MEDICARE ==
[2019-06-27 18:23] VITALS: BMI 20.1
[~2019-09-28 09:00] MED LIST changes: +AMOXICILLIN875 MG PO; +LANOXIN125 MCG PO; +METOPROLOL TART25 MG PO; +PEPCID40 MG PO; +PREDNISONE20 MG PO; +WELLBUTRIN SR150 MG PO; +ZYPREXA20 MG PO
== END 2019-09-28 10:00 | disposition home or self-care (01) ==
LOC: D.MAMMO 09:00
PROVIDERS: ATTEND Family Medicine
DX: Z85.3 Personal history of malignant neoplasm of breast (principal)

== ENCOUNTER → 2019-11-01 13:25 | Outpatient (CLI) | payer MEDICARE ==
[2019-06-27 18:23] VITALS: BMI 20.1
== END | disposition home or self-care (01) ==
LOC: D.RT 09-01 10:00
PROVIDERS: ATTEND Internal Medicine Pulmonary Disease
DX: R91.1 Solitary pulmonary nodule (principal); J44.9 Chronic obstructive pulmonary disease, unspecified

== ENCOUNTER → 2020-07-02 09:31 | Outpatient (CLI) | payer MEDICARE ==
[2019-06-27 18:23] VITALS: BMI 20.1
== END | disposition home or self-care (01) ==
LOC: D.CT 09:31
PROVIDERS: ATTEND Internal Medicine Pulmonary Disease
DX: R91.1 Solitary pulmonary nodule (principal)

== ENCOUNTER → 2020-07-31 09:41 | Outpatient (CLI) | payer MEDICARE ==
[2019-06-27 18:23] VITALS: BMI 20.1
== END | disposition home or self-care (01) ==
LOC: D.HCCECHO 09:41
PROVIDERS: ATTEND Internal Medicine Cardiovascular Disease
DX: I34.0 Nonrheumatic mitral (valve) insufficiency (principal)

== ENCOUNTER 2020-08-29 07:46 | Day surgery (SDC) | payer MEDICARE, OTHER ==
[~2020-08-29] VITALS: Ht 172.7 cm; Wt 52.2 kg
[2020-08-29 08:22] LABS: BASOPHILS 0.8 % (0-2); EOSINOPHILS 7.6 % (0-7); HEMATOCRIT 39.3 % (36.0-48.0); HEMOGLOBIN 13.4 g/dL (12-16); IMMATURE GRANULOCYTES 0.2 % (0-5); LYMPHOCYTE ABS# 1.72 10x3/uL (1.18-3.74); MCH 32.2 pg (26.0-34.0); MCHC 34.1 g/dL (31.0-37.0); MCV 94.5 fL (80.0-100.0); MEAN PLATELET VOLUME 10.1 fL (7.4-10.4); NEUTROPHIL ABS# 3.41 10x3/uL (1.56-6.13); NEUTROPHILS 51.4 % (40-80); RBC 4.16 10x6/uL (4.00-5.40); RDW 15.3 % (11.5-14.5); WBC 6.6 10x3/uL (4.8-10.8)
[2020-08-29 08:44] LABS: CALC OSMOLALITY 283 mosm/kg (275-300); CALCIUM 8.6 mg/dL (8.5-10.1); CARBON DIOXIDE 32.3 mmol/L (21.0-32.0); CHLORIDE - SERUM 105 mmol/L (98-107); CREATININE - SERUM 0.6 mg/dL (0.6-1.3); GLUCOSE 85 mg/dL (74-106); POTASSIUM - SERUM 3.5 mmol/L (3.5-5.1); SODIUM 144 mmol/L (136-145); UREA NITROGEN 8 mg/dL (7-18); eGFR NON AFRICAN AMERICAN > 90 mL/min (90-120)
[2020-08-29 09:14] LABS: PLATELET COUNT 251 10x3/uL (130-400)
[2020-08-29] MEDS ORDERED: PRAVASTATIN SOD10 MG PO (09:24)
[2020-08-29 09:28] VITALS: BP 120/78; Ht 172.7 cm; Wt 52.2 kg
--- NOTE | 2020-08-29 11:34 | NUR ---
PER PT REQUEST, CALLED DAUGHTERCORY TO LET HER KNOW PT IS OUT OF PROCEDURE 1140 DC TEACHING COMPLETE. PT VERBALIZED UNDERSTANDING. PIV REMOVED, CATHETER INTACT. PT GETTING DRESSED. 1200 PT DC'D VIA WC BY LAMIN WITH ALL BELONGINGS AND DC PACKET TO POV WITH SON DRIVING.
--- NOTE | 2020-08-29 14:46 | OP ---
PATIENT NAME: MAGGI CRISTINA MEDICAL RECORD: [id number] :52 LOCATION:RAKESH ADMISSION DATE: SURGEON: PASQUALE FERRARA MD DATE OF OPERATION: 08/29/2020 PROCEDURE: Colonoscopy. PREOPERATIVE DIAGNOSIS: History of colon polyps. MEDICATION: Propofol per anesthesia. DESCRIPTION OF PROCEDURE: The patient was made comfortable in the left lateral position. The colonoscope was inserted through the rectum and advanced to 30 cm. Unfortunately, the patient had a poor prep with thick adherent stool despite suctioning. Visibility was limited. The procedure was stopped. FINAL DIAGNOSIS: Poor prep. PLAN: Repeat colonoscopy with 2-day prep. TRANSINT:[id number] Voice Confirmation ID: [id number] DOCUMENT ID: [id number] PASQUALE FERRARA MD at 1446 CC: [id number] DICTATION DATE: 08/29/20 1104 COMBUSTION ANALYST: 08/29/20 1131 [facility] [address] [place] [address]
== END 2020-08-29 12:00 | disposition home or self-care (01) ==
LOC: D.OPS 07:46
PROVIDERS: Anesthesiology; ATTEND Internal Medicine Gastroenterology
DX: Z86.010 Personal history of colon polyps (principal); Z12.11 Encounter for screening for malignant neoplasm of colon

== ENCOUNTER → 2020-10-02 10:37 | Outpatient (CLI) | payer MEDICARE ==
[2020-08-29 09:28] VITALS: BMI 17.5
[~2020-10-02 10:37] MED LIST changes: +PRAVASTATIN SOD10 MG PO
== END | disposition home or self-care (01) ==
LOC: D.CT 10:37
PROVIDERS: ATTEND Internal Medicine Pulmonary Disease
DX: R91.1 Solitary pulmonary nodule (principal)

== ENCOUNTER 2020-10-25 07:16 | Day surgery (SDC) | payer MEDICARE ==
[~2020-10-25] VITALS: Ht 172.7 cm; Wt 54.1 kg
[2020-10-25 07:53] LABS: BASOPHILS 1.4 % (0-2); HEMATOCRIT 40.8 % (36.0-48.0); HEMOGLOBIN 13.9 g/dL (12-16); LYMPHOCYTES 41.7 % (15-50); MCH 32.1 pg (26.0-34.0); MCV 94.5 fL (80.0-100.0); MONOCYTES 8.1 % (2-11); NEUTROPHILS 38.8 % (40-80); PLATELET COUNT 223 10x3/uL (130-400); RBC 4.32 10x6/uL (4.00-5.40); RDW 14.8 % (11.5-14.5); WBC 6.4 10x3/uL (4.8-10.8)
[2020-10-25 08:30] LABS: CALC OSMOLALITY 279 mosm/kg (275-300); CALCIUM 8.7 mg/dL (8.5-10.1); CARBON DIOXIDE 28.2 mmol/L (21.0-32.0); CHLORIDE - SERUM 105 mmol/L (98-107); CREATININE - SERUM 0.7 mg/dL (0.6-1.3); GLUCOSE 71 mg/dL (74-106); POTASSIUM - SERUM 3.3 mmol/L (3.5-5.1); SODIUM 142 mmol/L (136-145); UREA NITROGEN 10 mg/dL (7-18); eGFR NON AFRICAN AMERICAN 88 mL/min (90-120)
[2020-10-25 08:40] VITALS: BP 132/78; Ht 172.7 cm; Wt 54.1 kg
--- NOTE | 2020-10-25 10:28 | NUR ---
1020 DAUGHTER AT BEDSIDE, DAUGHTER IS AN RN. DISCHARGE INSTRUCTIONS REVIEWED W PATIENT AND DAUGHTER. VERBALIZED UNDERSTANDING
--- NOTE | 2020-10-25 11:14 | NUR ---
RECEIVED AFTER PROCEDURE AT 1008, PATIENT DROWSY BUT AWAKE. REQUESTED COFFEE. DAUGHTER HERE 1040 VS STABLE NO CO VOICED IV REMOVED W CATH INTACT AT 1040 DISCHARGED VIA WC AFTER INSTRUCTIONS REVIEWED W DAUGHTER AND PATIENT, NO QUESTIONS
--- NOTE | 2020-10-26 09:09 | OP ---
PATIENT NAME: MAGGI CRISTINA MEDICAL RECORD: [id number] LOCATION:[facility] ADMISSION DATE: SURGEON: PASQUALE FERRARA MD DATE OF OPERATION: 10/25/2020 PROCEDURE: Colonoscopy. PREOPERATIVE DIAGNOSIS: History of colon polyps. MEDICATIONS: Propofol per anesthesia. DESCRIPTION OF PROCEDURE: Colonoscopy was performed. The patient was made comfortable in the left lateral position. The colonoscope was inserted through the rectum and advanced to the cecum, identified by the ileocecal valve and the appendiceal orifice. Cecal time was noted. The entire mucosa appeared normal. The prep was good. Two small polyps were removed in the sigmoid colon and ascending colon respectively with cold biopsy forceps. The remainder of the exam was normal. The patient tolerated the procedure well. FINAL DIAGNOSIS: Sigmoid polyp and ascending colon polyps, both diminutive in size and removed with cold biopsy forceps. PLAN: Check histology results. Advance diet. Return to GI office. TRANSINT:[id number] Voice Confirmation ID: [id number] DOCUMENT ID: [id number] PAQSUALE FERRARA MD at 0909 CC: [id number] DICTATION DATE: 10/25/20 0957 FRAME ALIGNER: 10/25/20 1017 [facility] 10/25/20 [id number] [place] [address]
== END 2020-10-25 11:00 | disposition home or self-care (01) ==
LOC: D.OPS 07:16
PROVIDERS: Anesthesiology; ATTEND Internal Medicine Gastroenterology
DX: Z86.010 Personal history of colon polyps (principal); K63.5 Polyp of colon; Z12.11 Encounter for screening for malignant neoplasm of colon

== ENCOUNTER 2020-10-29 14:05 | Outpatient (CLI) | payer MEDICARE ==
[2020-10-25 08:40] VITALS: BMI 18.1
== END 2020-10-29 23:59 | disposition home or self-care (01) ==
LOC: D.MAMMO 14:05
PROVIDERS: ATTEND Family Medicine
DX: Z12.31 Encounter for screening mammogram for malignant neoplasm of breast (principal)